=== PATIENT | female | born 2000 | race Caucasian/White ===

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

== ENCOUNTER 2021-02-02 20:16 | Emergency (ER) | payer OTHER ==
[2021-02-02 21:12] VITALS: RESP 18
--- NOTE | 2021-02-02 21:34 | XR ---
EXAMINATION TYPE: XR chest 2V DATE OF EXAM: 02/02/2021 COMPARISON: 07/24/2020 HISTORY: Chest pain TECHNIQUE: FINDINGS: Heart and mediastinum are normal. Lungs are clear. Diaphragm is normal. Bony thorax appears normal. IMPRESSION: Normal chest. No change.
--- NOTE | 2021-02-02 21:59 | ED ---
Chest Pain HPI - General Chief Complaint: Chest Pain Stated Complaint: chest pain, SOB Time Seen by Provider: 02/02/21 21:24 Source: patient, RN notes reviewed, old records reviewed Mode of arrival: ambulatory Limitations: no limitations - History of Present Illness Initial Comments: This is a 20-year-old female to emergency. Patient is no significant medical history no significant travel history or trauma. No fevers. He coming in for chest pain, no history of anxiety no current shortness of breath. Patient states chest pain woke her up from sleep, no prior medical history or similar history of chest pain. On arrival to ER chest pain is resolved MD Complaint: chest pain -: days(s) Onset: during rest Pain Location: substernal, left chest Pain Radiation: LUE Severity: moderate Quality: aching Consistency: intermittent Improves With: nothing Worsens With: nothing Context: recent illness Anginal Symptoms: nausea, dyspnea Other Symptoms: cough Treatments Prior to Arrival: none - Related Data Home Medications Medication Instructions Recorded Confirmed Acetaminophen-Codeine 300-30mg 1 tab PO Q6H PRN 02/06/21 02/06/21 [Tylenol w/codeine #3] Polyethylene Glycol 3350 [Miralax] 17 gm PO DAILY PRN 02/06/21 02/06/21 Previous Rx's Medication Instructions Recorded Sucralfate [Carafate] 1 gm PO ACHS #40 tablet 02/06/21 Allergies Allergy/AdvReac Type Severity Reaction Status Date / Time No Known Allergies Allergy Verified 02/06/21 17:50 Review of Systems ROS Statement: Those systems with pertinent positive or pertinent negative responses have been documented in the HPI. ROS Other: All systems not noted in ROS Statement are negative. Past Medical History Past Medical History: No Reported History Additional Past Medical History / Comment(s): seasonal allergies History of Any Multi-Drug Resistant Organisms: None Reported Past Surgical History: No Surgical Hx Reported Past Psychological History: No Psychological Hx Reported Smoking Status: Vaper Past Alcohol Use History: None Reported Past Drug Use History: Marijuana General Exam Limitations: no limitations General appearance: alert, in no apparent distress Head exam: Present: atraumatic, normocephalic, normal inspection Eye exam: Present: normal appearance, PERRL, EOMI. Absent: scleral icterus, conjunctival injection, periorbital swelling ENT exam: Present: normal exam, mucous membranes moist Neck exam: Present: normal inspection. Absent: tenderness, meningismus, lymphadenopathy Respiratory exam: Present: normal lung sounds bilaterally. Absent: respiratory distress, wheezes, rales, rhonchi, stridor Cardiovascular Exam: Present: regular rate, normal rhythm, normal heart sounds. Absent: systolic murmur, diastolic murmur, rubs, gallop, clicks GI/Abdominal exam: Present: soft, normal bowel sounds. Absent: distended, tenderness, guarding, rebound, rigid Extremities exam: Present: normal inspection, full ROM, normal capillary refill. Absent: tenderness, pedal edema, joint swelling, calf tenderness Back exam: Present: normal inspection Neurological exam: Present: alert, oriented X3, CN II-XII intact Psychiatric exam: Present: normal affect, normal mood Skin exam: Present: warm, dry, intact, normal color. Absent: rash Course Vital Signs 02/02/21 02/02/21 02/02/21 21:10 21:48 22:18 Temperature 98.2 F 97.3 F L Pulse Rate 69 50 L Pulse Rate [ 55 L Pediatric Clinical Dietician ] Respiratory 18 18 Rate Blood Pressure 145/87 116/83 O2 Sat by Pulse 99 98 Oximetry - Reevaluation(s) Reevaluation #1: 02/03/21 Record is reviewed Patient symptoms are improved here in the emergency department Patient informed of results and questions answered Patient is in no acute distress Chest Pain MDM - MDM 20-year-old female DF for evaluation of chest pain today. Patient's chest pain is atypical in nature. Patient's chest pain is reproducible. X-rays negative patient can be discharged home Disposition Clinical Impression: Atypical chest pain, Costochondritis Disposition: HOME SELF-CARE Condition: Good Instructions (If sedation given, give patient instructions): Costochondritis (ED) Is patient prescribed a controlled substance at d/c from ED?: No Referrals: Bryan Persaud Jr, [Primary Care Provider] - 1-2 days
[2021-02-02 22:19] VITALS: BP 116/83; PULSE 50; TEMP 97.3
== END 2021-02-02 22:18 | disposition home or self-care (01) ==
LOC: EC 20:16
DX: M94.0 Chondrocostal junction syndrome [Tietze] (principal); R11.0 Nausea; R05 Cough; R06.02 Shortness of breath; F17.290 Nicotine dependence, other tobacco product, uncomplicated
CPT/HCPCS: 71046; 93005; 99285

== ENCOUNTER 2021-02-05 17:42 | Emergency (ER) | payer OTHER ==
[2021-02-05 18:06] VITALS: TEMP 98.3
[2021-02-05 19:51] VITALS: RESP 20
[2021-02-05] MEDS ORDERED: NITROGLYCERIN SL TABS 0.4 MG TAB SUBLINGUAL STA (20:06)
[2021-02-05 20:30] VITALS: BP 112/58; PULSE 61
[2021-02-05] MEDS ORDERED: ACET/COD 300 MG/30 MG STARTER PACK 6 TAB BTL PO STA (20:50)
--- NOTE | 2021-02-05 20:51 | ED ---
General Adult HPI - General Source: patient Mode of arrival: ambulatory Limitations: no limitations <Mary Hernandez - Last Filed: 02/06/21 03:43> <Tonya Mcbride - Last Filed: 02/06/21 11:34> - General Chief complaint: Chest Pain Stated complaint: Chest pain Time Seen by Provider: 02/05/21 19:36 - History of Present Illness Initial comments: 20 year-old female patient presents to the emergency department for evaluation of chest pain. Patient states this has been going on over the last month. States she has been evaluated multiple times for this. States that the pain is in her mid upper to left chest. Denies radiation to her back. Denies any cough or congestion. States the pain started today after taking a benadryl. States that it has started in the past with eating. States she has been having increased heart burn and hiccups as well. She denies any leg swelling or calf pain. Denies recent travel. Denies use of control or concern for . Denies fever or chills. Denies any hematochezia or melena. Denies nausea or vomiting. Patient denies any recent rash, abdominal pain, diarrhea, constipation, back pain, numbness, tingling, dizziness, weakness, hematuria, dysuria, urinary urgency, urinary frequency, headache, visual changes, or any other complaints. (Mary Hernandez) - Related Data Home Medications Medication Instructions Recorded Confirmed No Known Home Medications 02/02/21 02/02/21 Allergies Allergy/AdvReac Type Severity Reaction Status Date / Time No Known Allergies Allergy Verified 02/02/21 22:02 Review of Systems ROS Other: All systems not noted in ROS Statement are negative. <Mary Hernandez - Last Filed: 02/06/21 03:43> ROS Other: All systems not noted in ROS Statement are negative. <Tonya Mcbride - Last Filed: 02/06/21 11:34> ROS Statement: Those systems with pertinent positive or pertinent negative responses have been documented in the HPI. Past Medical History Past Medical History: No Reported History Additional Past Medical History / Comment(s): seasonal allergies History of Any Multi-Drug Resistant Organisms: None Reported Past Surgical History: No Surgical Hx Reported Past Psychological History: No Psychological Hx Reported Smoking Status: Vaper Past Alcohol Use History: None Reported Past Drug Use History: Marijuana <Mary Hernandez - Last Filed: 02/06/21 03:43> General Exam Limitations: no limitations General appearance: alert, in no apparent distress, other (This is a well- developed, well-nourished adult female patient in no acute distress. Vital signs upon presentation are temperature 98.3F, pulse 73, respirations 18, blood pressure 106/63, pulse ox 97% on room air.) Eye exam: Present: normal appearance, PERRL, EOMI. Absent: scleral icterus, conjunctival injection, periorbital swelling ENT exam: Present: normal exam, normal oropharynx, mucous membranes moist Respiratory exam: Present: normal lung sounds bilaterally. Absent: respiratory distress, wheezes, rales, rhonchi, stridor Cardiovascular Exam: Present: regular rate, normal rhythm, normal heart sounds. Absent: systolic murmur, diastolic murmur, rubs, gallop, clicks GI/Abdominal exam: Present: soft, normal bowel sounds. Absent: distended, tenderness, guarding, rebound, rigid Neurological exam: Present: alert, oriented X3, CN II-XII intact Psychiatric exam: Present: normal affect, normal mood Skin exam: Present: warm, dry, intact, normal color. Absent: rash <DanaMukul schreiberina Sheri - Last Filed: 02/06/21 03:43> Course Vital Signs 02/05/21 02/05/21 02/05/21 18:02 19:50 20:28 Temperature 98.3 F Pulse Rate 73 53 L 61 Respiratory 18 20 20 Rate Blood Pressure 106/63 117/77 112/58 O2 Sat by Pulse 97 98 96 Oximetry Medical Decision Making <DanaabdoulMary - Last Filed: 02/06/21 03:43> <Tonya Mcbride - Last Filed: 02/06/21 11:34> - Medical Decision Making 20-year-old female patient percents to the emergency department today for evaluation of chest pain. Patient has been seen multiple times this year for similar symptoms over the last month or so. Physical examination is unremarkable. Abdomen soft and nontender. Given description of symptoms and history there is some concern for esophageal spasms I did give him one nitro. States that this did improve her symptoms somewhat. She'll be discharged to follow up with GI specialist for further evaluation as soon as possible. Return parameters were discussed in detail. She verbalizes understanding and agrees with this plan. Case discussed my attending Dr. Mcbride. (Mary Hernandez) I was available for consultation in the emergency department. The history and physical exam were done by the midlevel provider. I was consulted for this patients care. I reviewed the case with the midlevel provider and based on their presentation of the patient, I agree with the assessment, medical decision making and plan of care as documented. Chart was dictated using [employer] dictation software. Attempts were made to correct any dictation errors however some typographical errors may persist. (Tonya Mcbride) Disposition Is patient prescribed a controlled substance at d/c from ED?: No Time of Disposition: 20:51 <Mary Hernandez - Last Filed: 02/06/21 03:43> <Tonya Mcbride - Last Filed: 02/06/21 11:34> Clinical Impression: Chest pain, Esophageal spasm Disposition: HOME SELF-CARE Condition: Good Instructions (If sedation given, give patient instructions): Chest Pain (ED), Esophageal Spasm (ED) Additional Instructions: Follow-up with GI specialist for further evaluation as soon as possible. Return to the emergency department for any new, worsening, or concerning symptoms. Referrals: Bryan Persaud Jr, DO [Primary Care Provider] - 1-2 days Amy Lowery MD [STAFF PHYSICIAN] - 1-2 days
== END 2021-02-05 21:28 | disposition home or self-care (01) ==
LOC: EC 17:42
DX: K22.4 Dyskinesia of esophagus (principal); F17.290 Nicotine dependence, other tobacco product, uncomplicated
CPT/HCPCS: 99284

== ENCOUNTER 2021-02-06 17:25 | Emergency (ER) | payer OTHER ==
[2021-02-06 17:29] VITALS: BP 101/69; PULSE 59; RESP 16; TEMP 98
--- NOTE | 2021-02-06 18:18 | ED ---
Abdominal Pain HPI - General Chief Complaint: Abdominal Pain Stated Complaint: Chest pain, unable to eat Time Seen by Provider: 02/06/21 18:16 Source: patient Mode of arrival: ambulatory Limitations: no limitations - History of Present Illness Initial Comments: Mary is a 20-year-old female who presents the ER again for the third time this week for reevaluation of epigastric abdominal discomfort. Patient has undergone workup twice for chest pain which she believed to be related to eating. Patient states her discomfort now is epigastric, she feels like she can't eat, eating makes the pain worse. Patient states she suffered from chronic constipation usually only has one bowel movement per week but has not had a bowel movement in over a week at this point. She states that she took a laxative yesterday and saw has not had a bowel movement. She has no significant abdominal pain to slight cramping but is concerned about this. She is scheduled to be seen by Dr. Sharma next week. She is scheduled to be seen by GI in April. - Related Data Home Medications Medication Instructions Recorded Confirmed Acetaminophen-Codeine 300-30mg 1 tab PO Q6H PRN 02/06/21 02/06/21 [Tylenol w/codeine #3] Polyethylene Glycol 3350 [Miralax] 17 gm PO DAILY PRN 02/06/21 02/06/21 Previous Rx's Medication Instructions Recorded Sucralfate [Carafate] 1 gm PO ACHS #40 tablet 02/06/21 Allergies Allergy/AdvReac Type Severity Reaction Status Date / Time No Known Allergies Allergy Verified 02/06/21 17:50 Review of Systems ROS Statement: Those systems with pertinent positive or pertinent negative responses have been documented in the HPI. ROS Other: All systems not noted in ROS Statement are negative. Past Medical History Past Medical History: No Reported History Additional Past Medical History / Comment(s): seasonal allergies History of Any Multi-Drug Resistant Organisms: None Reported Past Surgical History: No Surgical Hx Reported Past Psychological History: No Psychological Hx Reported Smoking Status: Vaper Past Alcohol Use History: None Reported Past Drug Use History: Marijuana General Exam - General Exam Comments Initial Comments: Physical Exam GENERAL: Patient is well-developed and well-nourished. Patient is nontoxic and well-hydrated and is in no distress. strong odor of marijuana HENT: Normocephalic, Atraumatic. EYES: PERRL, EOMI PULMONARY: Unlabored respirations. CARDIOVASCULAR: Warm and well perfused extremities ABDOMEN: Soft,Non-distended, non-peritoneal SKIN: No rashes or bruising : Deferred NEUROLOGIC: Alert and oriented Normal speech Normal gait MUSCULOSKELETAL: Moving all extremities with no apparent injury PSYCHIATRIC: No SI/HI Limitations: no limitations Course Vital Signs 02/06/21 17:26 Temperature 98.0 F Pulse Rate 59 L Respiratory 16 Rate Blood Pressure 101/69 O2 Sat by Pulse 97 Oximetry Medical Decision Making - Medical Decision Making the patient was seen and evaluated, patient crying stating that she is scared of needles, does not want blood work Not having chest pain like earlier in the week At this time patient has undergone a very thorough workup twice this week, I did offer to ultrasound the gallbladder however her pain is not postprandial, not worsened by eating but constant. She has no right upper quadrant abdominal tenderness she's had normal labs throughout the week. At this time patient like to decline of the ultrasound. Patient will be treated with concern suppository for her constipation and prescribed Carafate for suspected gastritis Disposition Clinical Impression: Epigastric pain Disposition: HOME SELF-CARE Condition: Stable Additional Instructions: Follow up with Dr Urrutia on as scheduled Prescriptions: Sucralfate [Carafate] 1 gm PO ACHS #40 tablet Is patient prescribed a controlled substance at d/c from ED?: No Referrals: Bryan Persaud Jr, DO [Primary Care Provider] - 1-2 days
[2021-02-06] MEDS ORDERED: GLYCERIN ADULT SUPPOSITORY 1 EACH RECTAL STA (18:43)
== END 2021-02-06 19:03 | disposition home or self-care (01) ==
LOC: EC 17:25
DX: R10.13 Epigastric pain (principal); F17.290 Nicotine dependence, other tobacco product, uncomplicated
CPT/HCPCS: 99283

== ENCOUNTER 2021-02-06 21:55 | Emergency (ER) | payer OTHER ==
[2021-02-06 22:16] VITALS: BP 99/57; PULSE 55; RESP 16
--- NOTE | 2021-02-06 22:40 | ED ---
General Adult HPI - General Chief complaint: Chest Pain Stated complaint: Revisit Chest Pain Time Seen by Provider: 02/06/21 22:17 Source: patient Mode of arrival: ambulatory Limitations: no limitations - History of Present Illness Initial comments: 20 year-old female patient presented for the second visit today for evaluation of chest pain. Patient states that she was on her way home from the store when she had intense pain in her chest and upper abdomen. Patient was seen here earlier for this. States when she got here she went to the bathroom and expelled a lot of gas. States that her symptoms are now resolved. She reports being seen many times for these symptoms over the last month. Does have some follow up appointments coming up with GI and general surgery. She denies any fever, chills, or shortness of breath. Denies nausea or vomiting. - Related Data Home Medications Medication Instructions Recorded Confirmed Acetaminophen-Codeine 300-30mg 1 tab PO Q6H PRN 02/06/21 02/06/21 [Tylenol w/codeine #3] Polyethylene Glycol 3350 [Miralax] 17 gm PO DAILY PRN 02/06/21 02/06/21 Previous Rx's Medication Instructions Recorded Sucralfate [Carafate] 1 gm PO ACHS #40 tablet 02/06/21 Allergies Allergy/AdvReac Type Severity Reaction Status Date / Time No Known Allergies Allergy Verified 02/06/21 17:50 Review of Systems ROS Statement: Those systems with pertinent positive or pertinent negative responses have been documented in the HPI. ROS Other: All systems not noted in ROS Statement are negative. Past Medical History Past Medical History: No Reported History Additional Past Medical History / Comment(s): seasonal allergies History of Any Multi-Drug Resistant Organisms: None Reported Past Surgical History: No Surgical Hx Reported Past Psychological History: No Psychological Hx Reported Smoking Status: Vaper Past Alcohol Use History: None Reported Past Drug Use History: Marijuana General Exam Limitations: no limitations General appearance: alert, in no apparent distress, other (This is a well- developed, well-nourished adult female patient in no acute distress. Vital signs upon presentation are pulse 55, respirations 16, blood pressure 99/57, pulse ox 98% on room air.) ENT exam: Present: normal exam, normal oropharynx, mucous membranes moist Respiratory exam: Present: normal lung sounds bilaterally. Absent: respiratory distress, wheezes, rales, rhonchi, stridor Cardiovascular Exam: Present: regular rate, normal rhythm, normal heart sounds. Absent: systolic murmur, diastolic murmur, rubs, gallop, clicks GI/Abdominal exam: Present: soft, normal bowel sounds. Absent: distended, tenderness, guarding, rebound, rigid Neurological exam: Present: alert, oriented X3, CN II-XII intact Psychiatric exam: Present: normal affect, normal mood Skin exam: Present: warm, dry, intact, normal color. Absent: rash Course Vital Signs 02/06/21 22:14 Pulse Rate 55 L Respiratory 16 Rate Blood Pressure 99/57 O2 Sat by Pulse 98 Oximetry Medical Decision Making - Medical Decision Making 20-year-old female patient presented to the emergency department for evaluation of chest pain and abdominal pain started on the drive from the pharmacy just prior to arrival. Upon arrival she went to the bathroom states she expelled a lot of gas and is now feeling better. She denies further need for testing or evaluation would like to be discharged home. She is instructed to follow-up with her primary care physician and specialist that she has planned. Return parameters were discussed in detail. She verbalizes understanding and agrees with this plan. My attending is Dr. Reyes. Disposition Clinical Impression: Chest pain, Abdominal pain Disposition: HOME SELF-CARE Condition: Good Instructions (If sedation given, give patient instructions): Chest Pain (ED), Abdominal Pain (ED) Is patient prescribed a controlled substance at d/c from ED?: No Referrals: Bryan Persaud Jr, [Primary Care Provider] - 1-2 days Time of Disposition: 22:40
== END 2021-02-06 22:44 | disposition home or self-care (01) ==
LOC: EC 21:55
DX: R07.9 Chest pain, unspecified (principal); R10.9 Unspecified abdominal pain; F17.290 Nicotine dependence, other tobacco product, uncomplicated
CPT/HCPCS: 99284

== ENCOUNTER 2021-06-20 18:59 | Emergency (ER) | payer OTHER ==
[2021-06-20 19:05] VITALS: BP 125/65; PULSE 55; RESP 20; TEMP 98.4
--- NOTE | 2021-06-20 20:24 | ED ---
Eye Problem HPI - General Chief complaint: Eye Problems Stated complaint: Rt Eye Pain Time Seen by Provider: 06/20/21 20:18 Source: patient, RN notes reviewed Mode of arrival: ambulatory Limitations: no limitations - History of Present Illness Initial comments: Patient is a 21-year-old female that presents to the emergency room complaining of right eye irritation. She notes she had eyelash in it 1-2 days ago I last saw but still feels like her eyes irritation and scratching. Patient notes she started [id number] eyedrops and was using her 6 times a day with no relief. She can emergency room to see if she could do. Vision denied any change in vision blurry vision chest pain first breath headache nausea vomiting diarrhea constipation fever fatigue chills. - Related Data Home Medications Medication Instructions Recorded Confirmed Acetaminophen-Codeine 300-30mg 1 tab PO Q6H PRN 02/06/21 02/06/21 [Tylenol w/codeine #3] Polyethylene Glycol 3350 [Miralax] 17 gm PO DAILY PRN 02/06/21 02/06/21 Previous Rx's Medication Instructions Recorded Sucralfate [Carafate] 1 gm PO ACHS #40 tablet 02/06/21 Allergies Allergy/AdvReac Type Severity Reaction Status Date / Time No Known Allergies Allergy Verified 06/20/21 19:05 Review of Systems ROS Statement: Those systems with pertinent positive or pertinent negative responses have been documented in the HPI. ROS Other: All systems not noted in ROS Statement are negative. Past Medical History Past Medical History: No Reported History Additional Past Medical History / Comment(s): seasonal allergies History of Any Multi-Drug Resistant Organisms: None Reported Past Surgical History: No Surgical Hx Reported Past Psychological History: No Psychological Hx Reported Smoking Status: Current every day smoker, Vaper Past Alcohol Use History: None Reported Past Drug Use History: Marijuana General Exam Limitations: no limitations General appearance: alert, in no apparent distress Head exam: Present: atraumatic, normocephalic, normal inspection Eye exam: Present: normal appearance, PERRL, EOMI, other (No obvious abrasions or physical exam.). Absent: scleral icterus, conjunctival injection, periorbital swelling Expanded Eyelids: Normal Inspection: Bilateral Pupils: Regular, Round: Bilateral, Reactive: Bilateral Sclera/Conjunctival: Normal Inspection: Bilateral ENT exam: Present: normal exam, mucous membranes moist Respiratory exam: Present: normal lung sounds bilaterally. Absent: respiratory distress, wheezes, rales, rhonchi, stridor Cardiovascular Exam: Present: regular rate, normal rhythm, normal heart sounds. Absent: systolic murmur, diastolic murmur, rubs, gallop, clicks Extremities exam: Present: normal inspection, full ROM, normal capillary refill. Absent: tenderness, pedal edema, joint swelling, calf tenderness Neurological exam: Present: alert, oriented X3 Psychiatric exam: Present: normal affect, normal mood Skin exam: Present: warm, dry, intact, normal color. Absent: rash Course Vital Signs 06/20/21 19:02 Temperature 98.4 F Pulse Rate 55 L Respiratory 20 Rate Blood Pressure 125/65 O2 Sat by Pulse 98 Oximetry Medical Decision Making - Medical Decision Making 21-year-old female with right eye irritation. Upon physical exam there is no obvious abrasions or irritation noted. Patient was informed she might have a small corneal abrasion causing irritation and scratchiness. Patient was a full she can use [id number] artificial tears to keep her eye moist. Patient is given discharge home with follow-up primary care as needed. Case discussed with Dr. Acosta. Disposition Clinical Impression: Corneal abrasion Disposition: HOME SELF-CARE Condition: Stable Instructions (If sedation given, give patient instructions): Eye Foreign Body ( ED) Additional Instructions: Please return to the Emergency Department if symptoms worsen or any other concerns. Follow-up with primary care 1-2 days. Can use artificial tears as needed throughout the day to keep eye wet. Is patient prescribed a controlled substance at d/c from ED?: No Referrals: Bryan Persaud Jr, DO [Primary Care Provider] - 1-2 days Time of Disposition: 20:24
== END 2021-06-20 20:34 | disposition home or self-care (01) ==
LOC: EC 18:59
DX: S05.01XA Injury of conjunctiva and corneal abrasion without foreign body, right eye, initial encounter (principal); F17.290 Nicotine dependence, other tobacco product, uncomplicated; X58.XXXA Exposure to other specified factors, initial encounter
CPT/HCPCS: 99283

== ENCOUNTER 2021-12-26 10:15 | Emergency (ER) | payer OTHER ==
[2021-12-26 10:25] VITALS: BP 115/70; PULSE 72; RESP 18; TEMP 98.1
--- NOTE | 2021-12-26 10:32 | ED ---
General Adult HPI - General Chief complaint: ENT Stated complaint: Candy stuck in throat Time Seen by Provider: 12/26/21 10:25 Source: patient, RN notes reviewed, old records reviewed Mode of arrival: ambulatory Limitations: no limitations - History of Present Illness Initial comments: This is a 21-year-old female presents emergency department stating yesterday she actually swallowed a hard candy and since then she's had this sensation in the left side of her throat occasionally might still be stuck there. Patient is able to drink without any problems she has no difficulty breathing. Patient states it was definitively a piece of candy that she swallowed there was no chance that was anything else like a bone. Patient denies any other symptoms at this time. - Related Data Home Medications Medication Instructions Recorded Confirmed Acetaminophen-Codeine 300-30mg 1 tab PO Q6H PRN 02/06/21 02/06/21 [Tylenol w/codeine #3] polyethylene glycoL 3350 [Miralax] 17 gm PO DAILY PRN 02/06/21 02/06/21 Previous Rx's Medication Instructions Recorded Sucralfate [Carafate] 1 gm PO ACHS #40 tablet 02/06/21 Allergies Allergy/AdvReac Type Severity Reaction Status Date / Time No Known Allergies Allergy Verified 12/26/21 10:25 Review of Systems ROS Statement: Those systems with pertinent positive or pertinent negative responses have been documented in the HPI. ROS Other: All systems not noted in ROS Statement are negative. Past Medical History Past Medical History: No Reported History Additional Past Medical History / Comment(s): seasonal allergies History of Any Multi-Drug Resistant Organisms: None Reported Past Surgical History: No Surgical Hx Reported Past Psychological History: No Psychological Hx Reported Smoking Status: Vaper Past Alcohol Use History: None Reported Past Drug Use History: Marijuana General Exam - General Exam Comments Initial Comments: GENERAL: Patient is well-developed and well-nourished. Patient is nontoxic and well- hydrated and is in no acute distress. ENT: Neck is soft and supple. No significant lymphadenopathy is noted. Oropharynx is clear. Moist mucous membranes. EYES: The sclera were anicteric and conjunctiva were pink and moist. Extraocular movements were intact and pupils were equal round and reactive to light. Eyelids were unremarkable. SKIN: Skin is clear with no lesions or rashes and otherwise unremarkable. NEUROLOGIC: Patient is alert and oriented x3. Cranial nerves II through XII are grossly intact. MUSCULOSKELETAL: Normal extremities with adequate strength and full range of motion. LYMPHATICS: No significant lymphadenopathy is noted PSYCHIATRIC: Normal psychiatric evaluation. Limitations: no limitations Course Vital Signs 12/26/21 10:21 Temperature 98.1 F Pulse Rate 72 Respiratory 18 Rate Blood Pressure 115/70 O2 Sat by Pulse 98 Oximetry Disposition Clinical Impression: Globus hystericus Disposition: HOME SELF-CARE Condition: Good Instructions (If sedation given, give patient instructions): Esophageal Foreign Body (ED) Is patient prescribed a controlled substance at d/c from ED?: No Referrals: Bryan Persaud Jr, [Primary Care Provider] - 1-2 days Time of Disposition: 10:32
== END 2021-12-26 10:40 | disposition home or self-care (01) ==
LOC: EC 10:15
DX: F45.8 Other somatoform disorders (principal); F17.290 Nicotine dependence, other tobacco product, uncomplicated; F12.90 Cannabis use, unspecified, uncomplicated
CPT/HCPCS: 99283

== ENCOUNTER 2021-12-26 13:29 | Emergency (ER) | payer OTHER ==
[2021-12-26 13:38] VITALS: TEMP 98.1
--- NOTE | 2021-12-26 13:52 | XR ---
EXAMINATION TYPE: XR soft tissue neck DATE OF EXAM: 12/26/2021 COMPARISON: NONE HISTORY: possible FB TECHNIQUE: 2 views of the soft tissues of the neck are submitted. FINDINGS: The airway is patent. Normal appearing epiglottis. Retropharyngeal soft tissues are withi n normal limits. No evidence for radiopaque foreign body. No radiopaque foreign body seen. IMPRESSION: Negative study
[2021-12-26] MEDS ORDERED: GLUCAGON 1 MG/ML VIAL IM STA ×2 (14:19→15:24)
--- NOTE | 2021-12-26 14:38 | ED ---
General Adult HPI - General Chief complaint: ENT Stated complaint: object stuck in throat/SOB/revist Time Seen by Provider: 12/26/21 14:00 Source: patient Mode of arrival: ambulatory Limitations: no limitations - History of Present Illness Initial comments: Patient is a 21-year-old female presenting with chief complaint of "I feel like something is stuck in my throat". Patient states that she was eating hard candy yesterday when the sensation began. It is accompanied by occasional sharp pain, pain with swallowing, and difficulty swallowing solid items. She denies any shortness of breath or chest pain. Patient was here earlier for the same complaint, she states that she tried hot tea, carbonated beverages, a milkshake, and she states that all of these did not alleviate her symptoms. She denies fever, chills, nausea, vomiting, headache, vision or hearing changes. - Related Data Home Medications Medication Instructions Recorded Confirmed Acetaminophen-Codeine 300-30mg 1 tab PO Q6H PRN 02/06/21 02/06/21 [Tylenol w/codeine #3] polyethylene glycoL 3350 [Miralax] 17 gm PO DAILY PRN 02/06/21 02/06/21 Previous Rx's Medication Instructions Recorded Sucralfate [Carafate] 1 gm PO ACHS #40 tablet 02/06/21 Allergies Allergy/AdvReac Type Severity Reaction Status Date / Time No Known Allergies Allergy Verified 12/26/21 13:38 Review of Systems ROS Statement: Those systems with pertinent positive or pertinent negative responses have been documented in the HPI. ROS Other: All systems not noted in ROS Statement are negative. Past Medical History Past Medical History: No Reported History Additional Past Medical History / Comment(s): seasonal allergies History of Any Multi-Drug Resistant Organisms: None Reported Past Surgical History: No Surgical Hx Reported Past Psychological History: No Psychological Hx Reported Smoking Status: Vaper Past Alcohol Use History: None Reported Past Drug Use History: Marijuana General Exam Limitations: no limitations General appearance: alert, in no apparent distress Head exam: Present: atraumatic, normocephalic, normal inspection Eye exam: Present: normal appearance, EOMI. Absent: scleral icterus, periorbital swelling ENT exam: Present: normal exam, normal oropharynx, mucous membranes moist Neck exam: Present: normal inspection Respiratory exam: Present: normal lung sounds bilaterally. Absent: respiratory distress, wheezes, rales, rhonchi, stridor Cardiovascular Exam: Present: regular rate, normal rhythm, normal heart sounds. Absent: systolic murmur, diastolic murmur, rubs, gallop, clicks Neurological exam: Present: alert, oriented X3, CN II-XII intact Psychiatric exam: Present: normal affect, normal mood Skin exam: Present: warm, dry, intact, normal color. Absent: rash Course Vital Signs 12/26/21 12/26/21 13:37 15:44 Temperature 98.1 F Pulse Rate 89 80 Respiratory 16 18 Rate Blood Pressure 125/85 122/70 O2 Sat by Pulse 99 98 Oximetry Medical Decision Making - Medical Decision Making Patient is a 21-year-old female presenting with chief complaint of difficulty swallowing. Patient states that yesterday she accidentally small the hard candy whole, since then she has had foreign body sensation and pain and difficulty with swallowing. She was here earlier today with the same complaint, she was instructed on supportive treatment and discharge. Patient states that th roughout the day symptoms got worse, she is unable to swallow anything other than water. No shortness of breath or difficulty breathing. On examination posterior pharynx is clear, no midline shift. Soft tissue x-ray of the neck shows no foreign body and normal-appearing epiglottis. Retro-pharyngeal soft tissue is WNL. Patient was given glucagon, valium, and nitro. Patient states she could not swallow the cracker and by mouth challenge and had difficulty swallowing water. She requires GI services, we have no GI coverage at this time. [facility]'ll be [facility] to [facility] for [facility] services, I spoke with Dr. Felicitas Peterson who agreed to accept the patient. Patient is agreeable with this plan, at this time she is refusing EMS services and requested be transferred by private car. At this time she is having no shortness of breath or difficulty breathing, she is stable for transfer. I discussed this case with my attending Dr. Shelley. Disposition Clinical Impression: Sensation of foreign body in esophagus Disposition: OTHER INSTITUTION NOT DEFINED Condition: Fair Referrals: Bryan Persaud Jr, DO [Primary Care Provider] - 1-2 days Time of Disposition: 16:59 - Out of Hospital Transfer - Req. Specs Out of Hospital Transfer - Requested Specifics: Other Emergency Center ([facility])
[2021-12-26] MEDS ORDERED: NITROGLYCERIN SL TABS 0.4 MG TAB SUBLINGUAL STA (15:24)
[2021-12-26] MEDS ORDERED: diazePAM 5 MG/ML 1 ML VIAL IM STA (15:24)
[2021-12-26 15:46] VITALS: BP 122/70; PULSE 80; RESP 18
[2021-12-26] MEDS ORDERED: hydrOXYzine HCL 50 MG/ML 1 ML VIAL IM STA (16:49)
== END 2021-12-26 17:51 | disposition other institution (70) ==
LOC: EC 13:29
DX: T18.108A Unspecified foreign body in esophagus causing other injury, initial encounter (principal); F17.209 Nicotine dependence, unspecified, with unspecified nicotine-induced disorders
CPT/HCPCS: 70360; 99284; 96372; J1610; J3360

== ENCOUNTER 2022-06-10 03:35 | Emergency (ER) | payer OTHER ==
[2022-06-10 03:39] VITALS: BP 113/67; PULSE 64; RESP 16; TEMP 98.2
[2022-06-10] MEDS ORDERED: KETOROLAC 15 MG/ML 1 ML VIAL IM STA (04:21)
--- NOTE | 2022-06-10 04:22 | ED ---
General Adult HPI - General Chief complaint: Dental/Oral Stated complaint: Dental Pain Time Seen by Provider: 06/10/22 03:53 Source: patient Mode of arrival: ambulatory Limitations: no limitations - History of Present Illness Initial comments: This is a 32-year-old female with a past medical history including a reported previous episode of choking and now a fear of having any solid foods she now only drinks liquids, presents emergency department for dental pain. The patient stated that she is a pain in the left upper teeth with multiple issues including "moving molars". The patient stated that she has an appointment on Tuesday with her dentist but stated that she continued pain so she needed be evaluated because she could not take anymore. The patient continued to remain stable without any further acute pain or complaints and denied any swelling or abscess. The patient denied any fevers and chills. - Related Data Home Medications Medication Instructions Recorded Confirmed Acetaminophen-Codeine 300-30mg 1 tab PO Q6H PRN 02/06/21 02/06/21 [Tylenol w/codeine #3] polyethylene glycoL 3350 [Miralax] 17 gm PO DAILY PRN 02/06/21 02/06/21 Previous Rx's Medication Instructions Recorded Sucralfate [Carafate] 1 gm PO ACHS #40 tablet 02/06/21 Allergies Allergy/AdvReac Type Severity Reaction Status Date / Time No Known Allergies Allergy Verified 06/10/22 03:37 Review of Systems ROS Statement: Those systems with pertinent positive or pertinent negative responses have been documented in the HPI. ROS Other: All systems not noted in ROS Statement are negative. Past Medical History Past Medical History: No Reported History Additional Past Medical History / Comment(s): seasonal allergies History of Any Multi-Drug Resistant Organisms: None Reported Past Surgical History: No Surgical Hx Reported Past Psychological History: No Psychological Hx Reported Smoking Status: Vaper Past Alcohol Use History: None Reported Past Drug Use History: Marijuana General Exam Limitations: no limitations General appearance: alert, in no apparent distress Head exam: Present: atraumatic, normocephalic Eye exam: Present: normal appearance, PERRL Pupils: Present: normal accommodation ENT exam: Present: normal exam, normal oropharynx, mucous membranes moist Neck exam: Present: normal inspection, full ROM Respiratory exam: Present: normal lung sounds bilaterally Cardiovascular Exam: Present: regular rate, normal rhythm, normal heart sounds GI/Abdominal exam: Present: soft, normal bowel sounds Extremities exam: Present: normal inspection, full ROM Back exam: Present: normal inspection, full ROM Neurological exam: Present: alert, oriented X3, CN II-XII intact Psychiatric exam: Present: normal affect, normal mood Skin exam: Present: warm, dry Course Vital Signs 06/10/22 03:37 Temperature 98.2 F Pulse Rate 64 Respiratory 16 Rate Blood Pressure 113/67 O2 Sat by Pulse 100 Oximetry Medical Decision Making - Medical Decision Making Was pt. sent in by a medical professional or institution? @ -No Did you speak to anyone other than the patient for history? @ -No Did you review nursing and triage notes? @ -Nursing triage notes were reviewed Were old charts reviewed? @ -None Differential Diagnosis? @ -Dental abscess, dental pain EKG interpreted by me (3pts min.)? @ -[none] X-rays interpreted by me (1pt min.)? @ -[none] CT interpreted by me (1pt min.)? @ -[none] U/S interpreted by me (1pt. min.)? @ -[none] What testing was considered but not performed? (CT, X-rays, U/S, labs)? Why? @None What meds were considered but not given? Why? @ -[none] Did you discuss the management of the patient with other professionals? @ -No Did you reconcile home meds? @ -[none] Was smoking cessation discussed for >3mins.? @ -[none] Was critical care preformed (if so, how long)? @ -[none] Were there social determinants of health that impacted care today? How? (Homelessness, low income, unemployed, alcoholism, drug addiction, transportation, low edu. Level, literacy, decrease access to med. care, [facility], rehab)? @ -No Was there de-escalation of care discussed even if they declined? (Discuss DNR or withdrawal of care, Hospice)? @ -No What co-morbidities impacted this encounter? (DM, HTN, Smoking, COPD, CAD, Cancer, CVA, Hep., AIDS, mental health diagnosis, sleep apnea, morbid obesity)? @ -None Was patient admitted / discharged? @ -The patient was seen and evaluated emergency department. Physical exam, the patient was resting in bed without any acute distress. The patient was up, using a mouthwash on the emergency Department as she stated this is the only had helps her pain. The patient stated that she cannot swallow pills because she had an issue with choking so she can't swallow a pill or she "freaks out." The patient remained stable and was given a dose of Toradol. The patient was advised to take Motrin [id number] however had to take Children's Motrin because she could not take any pills. The patient was advised to follow-up with her dentist for further workup and evaluation as there is no further intervention or treatment needed in the emergency Department as there is no abscess noted. The patient continued to remain stable and understood all these instructions. The patient was discharged home in stable condition. Undiagnosed new problem with uncertain prognosis? @ -[none] Drug Therapy requiring intensive monitoring for toxicity (Heparin, Nitro, Insulin, Cardizem)? @ -[none] Were any procedures done? @ -[none] Diagnosis/symptom? @ -Dental pain Acute, or Chronic, or Acute on Chronic? @ -Acute Uncomplicated (without systemic symptoms) or Complicated (systemic symptoms)? @ -Uncomplicated Side effects of treatment? @ -[none] Exacerbation, Progression, or Severe Exacerbation] @ -[no] Poses a threat to life or bodily function? @ -[no] Disposition Clinical Impression: Pain, dental Disposition: HOME SELF-CARE Condition: Stable Instructions (If sedation given, give patient instructions): Toothache (ED) Is patient prescribed a controlled substance at d/c from ED?: No Referrals: Bryan Persaud Jr, DO [Primary Care Provider] - 1-2 days Time of Disposition: 04:20
== END 2022-06-10 04:34 | disposition home or self-care (01) ==
LOC: EC 03:35
DX: K08.89 Other specified disorders of teeth and supporting structures (principal); F17.290 Nicotine dependence, other tobacco product, uncomplicated; F12.90 Cannabis use, unspecified, uncomplicated
CPT/HCPCS: 99282; 96372; J1885

== ENCOUNTER 2022-06-10 19:31 | Emergency (ER) | payer OTHER ==
[2022-06-10 19:51] VITALS: BP 132/79; PULSE 96; RESP 16; TEMP 98
[2022-06-10] MEDS ORDERED: LIDOCAINE VISCOUS 2% 15 ML CUP MUCOUS MEM ONE (20:52)
--- NOTE | 2022-06-10 20:55 | ED ---
ENT HPI - General Chief complaint: Dental/Oral Stated complaint: Dental issue Time Seen by Provider: 06/10/22 20:44 Source: patient, RN notes reviewed Mode of arrival: ambulatory Limitations: no limitations - History of Present Illness Initial comments: Aphthous ulcer Pleasant 22-year-old female presents to emergency department complaining of left upper dental pain. Patient has a dentist appointment tomorrow to have her tooth pulled. He says arty on amoxicillin. Patient has been using mouthwash much more than directed. Since then she has developed aphthous ulcers to the mucous membranes of her mouth. Patient leaves this may be related to overusing the mouthwash. Patient denies any fever. Denies any problems with swallowing. He is complaining of some burning discomfort to the areas of the aphthous ulcers. No headache, no fever or chills, no changes in vision or hearing, no sore throat or difficulty with speech, no neck pain, no chest pain or shortness of breath, no abdominal pain, no nausea or vomiting, no changes in urination or bowel movements, no numbness or tingling, no extremity pain, no skin rashes or lesions. Past medical, surgical, social, and family history reviewed. - Related Data Home Medications Medication Instructions Recorded Confirmed Acetaminophen-Codeine 300-30mg 1 tab PO Q6H PRN 02/06/21 02/06/21 [Tylenol w/codeine #3] polyethylene glycoL 3350 [Miralax] 17 gm PO DAILY PRN 02/06/21 02/06/21 Previous Rx's Medication Instructions Recorded Sucralfate [Carafate] 1 gm PO ACHS #40 tablet 02/06/21 Allergies Allergy/AdvReac Type Severity Reaction Status Date / Time No Known Allergies Allergy Verified 06/10/22 03:37 Review of Systems ROS Statement: Those systems with pertinent positive or pertinent negative responses have been documented in the HPI. ROS Other: All systems not noted in ROS Statement are negative. Past Medical History Past Medical History: No Reported History Additional Past Medical History / Comment(s): seasonal allergies History of Any Multi-Drug Resistant Organisms: None Reported Past Surgical History: No Surgical Hx Reported Past Psychological History: No Psychological Hx Reported Smoking Status: Vaper Past Alcohol Use History: None Reported Past Drug Use History: Marijuana General Exam - General Exam Comments Initial Comments: Vital signs stable, patient afebrile. Patient does not appear to be ill or toxic. Limitations: no limitations General appearance: alert, in no apparent distress Head exam: Present: atraumatic, normocephalic, normal inspection Eye exam: Present: normal appearance, EOMI ENT exam: Present: mucous membranes moist, other (Patient has multiple aphthous ulcers noted, more so to the left mucous membranes.). Absent: normal exam (Mild erythema adjacent to tooth #19. No evidence of abscess), normal oropharynx, mucous membranes dry, TM's normal bilaterally, normal external ear exam Neck exam: Present: normal inspection. Absent: tenderness, meningismus, lymphadenopathy Respiratory exam: Present: normal lung sounds bilaterally. Absent: respiratory distress, wheezes, rales, rhonchi, stridor Cardiovascular Exam: Present: regular rate, normal rhythm, normal heart sounds. Absent: systolic murmur, diastolic murmur, rubs, gallop, clicks GI/Abdominal exam: Present: soft. Absent: tenderness Extremities exam: Present: normal inspection, full ROM Neurological exam: Present: alert, oriented X3, CN II-XII intact Course Vital Signs 06/10/22 19:48 Temperature 98 F Pulse Rate 96 Respiratory 16 Rate Blood Pressure 132/79 O2 Sat by Pulse 99 Oximetry Medical Decision Making - Medical Decision Making Was pt. sent in by a medical professional or institution? @ -no Did you speak to anyone other than the patient for history? @ -no Did you review nursing and triage notes? @ -agree Were old charts reviewed? @ -no Differential Diagnosis? @ -Herpetic infection, aphthous ulcer, dental infection, streptococcal pharyngitis, oral candidiasis, this is not an inclusive list What meds were considered but not given? Why? @ -I did consider narcotic pain medications. However after discussion with the patient, patient is requesting something topical. After shared decision-making we did decide on topical viscous Xylocaine Did you discuss the management of the patient with other professionals? @ -ED attending physician Was patient admitted / discharged? @ -Patient was discharged with suspected aphthous ulcers. Topical treatment ordered. Patient has a dental appointment tomorrow. Return for all parameters discussed in detail. Patient voices understanding of the treatment plan. Acute, or Chronic, or Acute on Chronic? @ -acute Uncomplicated (without systemic symptoms) or Complicated (systemic symptoms)? @ -Uncomplicated Exacerbation, Progression, or Severe Exacerbation] @ -[no] Poses a threat to life or bodily function? @ -[no] Patient was told to return to the ER for any signs or symptoms worsen. Told to return immediately if any other problems arise. All questions answered. Treatment plan discussed. Patient in agreement Every effort has been made to ensure accuracy of this dictation. However, due to the limitations of electronic medical records and dictation devices, errors in charting still occur. Supervising physician Dr. Shelley Disposition Clinical Impression: Aphthous ulcer of mouth Narrative: Use 1-2 teaspoons of the viscous lidocaine every 2 hours for oral pain. Procedure the dentist appointment tomorrow as planned. Follow-up with your regular physician as directed. Return to the ER immediately if any symptoms worsen, new symptoms arise, or any other problems develop. You can also use [id number] ibuprofen and/or acetaminophen for additional pain control. Disposition: HOME SELF-CARE Condition: Good Instructions (If sedation given, give patient instructions): Courtney Weaver (ED) Is patient prescribed a controlled substance at d/c from ED?: No Referrals: Bryan Persaud Jr, [Primary Care Provider] - 1-2 days
== END 2022-06-10 21:08 | disposition home or self-care (01) ==
LOC: EC 19:31
DX: K12.0 Recurrent oral aphthae (principal); F12.90 Cannabis use, unspecified, uncomplicated; F17.290 Nicotine dependence, other tobacco product, uncomplicated
CPT/HCPCS: 99282

== ENCOUNTER 2022-09-10 18:40 | Emergency (ER) | payer OTHER ==
[2022-09-10 18:56] VITALS: BP 111/67; PULSE 78; RESP 16; TEMP 98
[2022-09-10 19:19] LABS: Appearance,Urine Cloudy (Clear); Bacteria,Urine Rare /hpf; Bilirubin,Urine Negative (Negative); Blood,Urine Moderate (Negative); Color,Urine Yellow; Glucose,Urine (UA) Negative (Negative); Ketones,Urine Negative (Negative); Leukocyte Esterase,Urine Small (Negative); Mucus,Urine Many /hpf; Nitrite,Urine Negative (Negative); PH, Urine 5.5 (5.0-8.0); Protein,Urine 1+ (Negative); RBC,Urine 75 /hpf (0-5); Specific Gravity,Urine 1.027 (1.001-1.035); Squamous Epithelial Cell,Urine 8 /hpf (0-4); WBC,Urine 10 /hpf (0-5)
--- NOTE | 2022-09-10 19:34 | ED ---
Female Urogenital HPI - General Chief complaint: Urogenital Stated complaint: Urogenital Time Seen by Provider: 09/10/22 19:07 Source: patient, RN notes reviewed, old records reviewed Mode of arrival: ambulatory Limitations: no limitations - History of Present Illness Initial comments: This is a well-appearing 22-year-old female that presents with 4 days of dysuria with frequency. Patient's states had a urinary tract infection a couple years ago and feels the same. Denies any back pain fevers, nausea vomiting or diarrhea. No concern for . Denies vaginal discharge. No medical history. Does smoke marijuana daily. MD Complaint: dysuria -: days(s) (4) Severity scale (1-10): 5 Quality: burning Consistency: intermittent Worsens with: urination Last Menstrual Period: 08/20/22 Patient : No Associated Symptoms: denies other symptoms - Related Data Home Medications Medication Instructions Recorded Confirmed Acetaminophen-Codeine 300-30mg 1 tab PO Q6H PRN 02/06/21 02/06/21 [Tylenol w/codeine #3] polyethylene glycoL 3350 [Miralax] 17 gm PO DAILY PRN 02/06/21 02/06/21 Previous Rx's Medication Instructions Recorded Sucralfate [Carafate] 1 gm PO ACHS #40 tablet 02/06/21 Phenazopyridine [Pyridium] 200 mg PO TID #6 tablet 09/10/22 Sulfamethox-Tmp 800-160Mg [Bactrim 1 tab PO Q12HR 5 Days #10 tab 09/10/22 DS 800-160 mg] Allergies Allergy/AdvReac Type Severity Reaction Status Date / Time No Known Allergies Allergy Verified 07/13/22 17:25 Review of Systems ROS Statement: Those systems with pertinent positive or pertinent negative responses have been documented in the HPI. ROS Other: All systems not noted in ROS Statement are negative. Past Medical History Past Medical History: No Reported History Additional Past Medical History / Comment(s): seasonal allergies History of Any Multi-Drug Resistant Organisms: None Reported Past Surgical History: No Surgical Hx Reported Past Psychological History: No Psychological Hx Reported Smoking Status: Vaper Past Alcohol Use History: None Reported Past Drug Use History: Marijuana General Exam Limitations: no limitations General appearance: alert, in no apparent distress Head exam: Present: atraumatic Eye exam: Absent: scleral icterus, conjunctival injection, periorbital swelling, periorbital tenderness ENT exam: Present: mucous membranes moist Neck exam: Present: full ROM. Absent: tenderness, meningismus Respiratory exam: Present: normal lung sounds bilaterally. Absent: respiratory distress, accessory muscle use Cardiovascular Exam: Present: regular rate GI/Abdominal exam: Present: soft. Absent: rigid Extremities exam: Present: normal capillary refill. Absent: pedal edema, joint swelling, calf tenderness Back exam: Present: full ROM. Absent: tenderness, CVA tenderness (R), CVA tenderness (L) Neurological exam: Present: alert, oriented X3, normal gait Psychiatric exam: Present: normal affect, normal mood Skin exam: Present: warm, dry, normal color. Absent: cyanosis, diaphoretic, petechiae, pallor Course Vital Signs 09/10/22 18:54 Temperature 98 F Pulse Rate 78 Respiratory 16 Rate Blood Pressure 111/67 O2 Sat by Pulse 98 Oximetry Medical Decision Making - Medical Decision Making UA shows evidence of UTI. Patient will be treated with Bactrim states that she has an appointment on Tuesday. Patient was also given Pyridium Case discussed with Dr. Nuñez. Was pt. sent in by a medical professional or institution (, PA, PUG MILL OPERATOR HELPER, urgent care, hospital, or fdc...) When possible be specific @ -No Did you speak to anyone other than the patient for history (EMS, parent, family, police, friend...)? What history was obtained from this source @ -No Did you review nursing and triage notes (agree or disagree)? Why? @ -I reviewed and agree with nursing and triage notes Were old charts reviewed (outside hosp., previous admission, EMS record, old EKG, old radiological studies, urgent care reports/EKG's, fdc records)? Report findings @ -No old charts were reviewed Differential Diagnosis (chest pain, altered mental status, abdominal pain women, abdominal pain men, vaginal bleeding, weakness, fever, dyspnea, syncope, headache, dizziness, GI bleed, back pain, seizure, CVA, palpatations, mental health, musculoskeletal)? @ -UTI, cystitis, STI, this is not a all-inclusive list. EKG interpreted by me (3pts min.). @ -n/a X-rays interpreted by me (1pt min.). @ -None done CT interpreted by me (1pt min.). @ -None done U/S interpreted by me (1pt. min.). @ -None done What testing was considered but not performed or refused? (CT, X-rays, U/S, labs)? Why? @ -None What meds were considered but not given or refused? Why? @ -None Did you discuss the management of the patient with other professionals (professionals i.e. , PA, PUG MILL OPERATOR HELPER, lab, RT, psych nurse, social services technician, arabic teacher, teacher, pharmaceutical officer, immigration case manager)? Give summary @ -No Was smoking cessation discussed for >3mins.? @ -No Was critical care preformed (if so, how long)? @ -No Were there social determinants of health that impacted care today? How? (Homelessness, low income, unemployed, alcoholism, drug addiction, transportation, low edu. Level, literacy, decrease access to med. care, correction, rehab)? @ -No Was there de-escalation of care discussed even if they declined (Discuss DNR or withdrawal of care, Hospice)? DNR status @ -No What co-morbidities impacted this encounter? (DM, HTN, Smoking, COPD, CAD, Cancer, CVA, ARF, Chemo, Hep., AIDS, mental health diagnosis, sleep apnea, morbid obesity)? @ -None Was patient admitted / discharged? Hospital course, mention meds given and route, prescriptions, significant lab abnormalities, going to OR and other pertinent info. @ -Discharged Undiagnosed new problem with uncertain prognosis? @ -No Drug Therapy requiring intensive monitoring for toxicity (Heparin, Nitro, Insulin, Cardizem)? @ -No Were any procedures done? @ -No Diagnosis/symptom? @ -UTI Acute, or Chronic, or Acute on Chronic? @ -Acute Uncomplicated (without systemic symptoms) or Complicated (systemic symptoms)? @ -Uncomplicated Side effects of treatment? @ -No Exacerbation, Progression, or Severe Exacerbation? @ -No Poses a threat to life or bodily function? How? (Chest pain, [place], [place], pneumonia, PE, COPD, DKA, ARF, appy, cholecystitis, CVA, Diverticulitis, Homicidal, Suicidal, threat to staff... and all critical care pts) @ -No - Lab Data Lab Results 09/10/22 09/10/22 Range/Units 18:57 19:00 Urine Color Yellow Urine Appearance Cloudy H (Clear) Urine pH 5.5 (5.0-8.0) Ur Specific [place] 1.027 (1.001-1.035) Urine Protein 1+ H (Negative) Urine Glucose (UA) Negative (Negative) Urine Ketones Negative (Negative) Urine Blood Moderate H (Negative) Urine Nitrite Negative (Negative) Urine Bilirubin Negative (Negative) Urine Urobilinogen 2.0 (<2.0) mg/dL Ur Leukocyte Esterase Small H (Negative) Urine RBC 75 H (0-5) /hpf Urine WBC 10 H (0-5) /hpf Ur Squamous Epith Cells 8 H (0-4) /hpf Urine Bacteria Rare H (None) /hpf Urine Mucus Many H (None) /hpf Urine HCG, Qual Not Detected (Not Detectd) Disposition Clinical Impression: Urinary tract infection Disposition: HOME SELF-CARE Condition: Good Instructions (If sedation given, give patient instructions): Urinary Tract Infection in Women (ED) Additional Instructions: Take antibiotics as prescribed. Increase your fluid intake. Follow-up with your primary care doctor as scheduled on Tuesday for reevaluation. Return to the emergency room with any new or concerning symptoms including fevers, back pain or persistent nausea vomiting. Prescriptions: Sulfamethox-Tmp 800-160Mg [Bactrim DS 800-160 mg] 1 tab PO Q12HR 5 Days #10 tab Phenazopyridine [Pyridium] 200 mg PO TID #6 tablet Is patient prescribed a controlled substance at d/c from ED?: No Referrals: Bryan Persaud Jr, [Primary Care Provider] - 1-2 days Time of Disposition: 19:33
== END 2022-09-10 19:51 | disposition home or self-care (01) ==
LOC: EC 18:40
DX: N39.0 Urinary tract infection, site not specified (principal); F17.290 Nicotine dependence, other tobacco product, uncomplicated; F12.90 Cannabis use, unspecified, uncomplicated
CPT/HCPCS: 81001; 81025; 87086; 99283

== ENCOUNTER 2023-02-02 14:14 | Emergency (ER) | payer OTHER ==
[2023-02-02] MEDS ORDERED: PROPARACAINE 0.5% OPHTH DROPS 15 ML BTL LEFT EYE STA (15:43)
[2023-02-02] MEDS ORDERED: FLUORESCEIN STRIPS 1 MG STRIP RIGHT EYE ONE (15:43)
--- NOTE | 2023-02-02 16:08 | ED ---
Eye Problem HPI - General Chief complaint: Eye Problems Stated complaint: chemical in eye Time Seen by Provider: 02/02/23 16:06 Source: patient Mode of arrival: ambulatory Limitations: no limitations - History of Present Illness Initial comments: 22-year-old female presenting to the ED with a chief complaint of eye problem. Patient states that she got some hair products and her left eye approximately 2 hours prior to arrival. Since then notes blurred vision and irritation of the eye. Denies loss of vision. No drainage from the eye. No other complaints. - Related Data Home Medications Medication Instructions Recorded Confirmed Acetaminophen-Codeine 300-30mg 1 tab PO Q6H PRN 02/06/21 02/06/21 [Tylenol w/codeine #3] polyethylene glycoL 3350 [Miralax] 17 gm PO DAILY PRN 02/06/21 02/06/21 Previous Rx's Medication Instructions Recorded Sucralfate [Carafate] 1 gm PO ACHS #40 tablet 02/06/21 Phenazopyridine [Pyridium] 200 mg PO TID #6 tablet 09/10/22 Sulfamethox-Tmp 800-160Mg [Bactrim 1 tab PO Q12HR 5 Days #10 tab 09/10/22 DS 800-160 mg] Artificial Tears-Hypromellose 1 drops LEFT EYE TID #10 ml 02/02/23 [Artificial Tear Drops] Allergies Allergy/AdvReac Type Severity Reaction Status Date / Time No Known Allergies Allergy Verified 02/02/23 15:03 Review of Systems ROS Statement: Those systems with pertinent positive or pertinent negative responses have been documented in the HPI. ROS Other: All systems not noted in ROS Statement are negative. Past Medical History Past Medical History: No Reported History Additional Past Medical History / Comment(s): seasonal allergies History of Any Multi-Drug Resistant Organisms: None Reported Past Surgical History: No Surgical Hx Reported Past Psychological History: No Psychological Hx Reported Smoking Status: Vaper Past Alcohol Use History: Occasional Past Drug Use History: Marijuana General Exam Limitations: no limitations General appearance: alert, in no apparent distress Head exam: Present: atraumatic, normocephalic Eye exam: Present: normal appearance, PERRL, EOMI, other (Visual acuity 20/20. Ocular pressure 17 left eye 18 right eye. No drainage on exam. Fluorescein exam shows no evidence of corneal abrasion.) Respiratory exam: Present: normal lung sounds bilaterally Cardiovascular Exam: Present: regular rate, normal rhythm Back exam: Present: normal inspection Skin exam: Present: warm, dry Course Vital Signs 02/02/23 14:59 Temperature 99.1 F Pulse Rate 97 Respiratory 18 Rate Blood Pressure 109/68 O2 Sat by Pulse 98 Oximetry Medical Decision Making - Medical Decision Making Was pt. sent in by a medical professional or institution (ERNIE Crawford, [employer], urgent care, hospital, or custodial...) When possible be specific @ -No Did you speak to anyone other than the patient for history (EMS, parent, family, police, friend...)? What history was obtained from this source @ -No Did you review nursing and triage notes (agree or disagree)? Why? @ -I reviewed and agree with nursing and triage notes Were old charts reviewed (outside hosp., previous admission, EMS record, old EKG, old radiological studies, urgent care reports/EKG's, custodial records)? Report findings @ -No old charts were reviewed Differential Diagnosis (chest pain, altered mental status, abdominal pain women, abdominal pain men, vaginal bleeding, weakness, fever, dyspnea, syncope, headache, dizziness, GI bleed, back pain, seizure, CVA, palpatations, mental health, musculoskeletal)? @ -Corneal abrasion, corneal laceration, chemical damaged eye. This is not meant to be an all-inclusive list. EKG interpreted by me (3pts min.). @ -None X-rays interpreted by me (1pt min.). @ -None done CT interpreted by me (1pt min.). @ -None done U/S interpreted by me (1pt. min.). @ -None done What testing was considered but not performed or refused? (CT, X-rays, U/S, labs)? Why? @ -None What meds were considered but not given or refused? Why? @ -None Did you discuss the management of the patient with other professionals (professionals i.e. ERNIE Crawford, [employer], lab, RT, psych nurse, social service director, finish painter, teacher, national service officer, case management social worker)? Give summary @ -No Was smoking cessation discussed for >3mins.? @ -No Was critical care preformed (if so, how long)? @ -No Were there social determinants of health that impacted care today? How? (Homelessness, low income, unemployed, alcoholism, drug addiction, transportation, low edu. Level, literacy, decrease access to med. care, retirement, rehab)? @ -No Was there de-escalation of care discussed even if they declined (Discuss DNR or withdrawal of care, Hospice)? DNR status @ -No What co-morbidities impacted this encounter? (DM, HTN, Smoking, COPD, CAD, Cancer, CVA, ARF, Chemo, Hep., AIDS, mental health diagnosis, sleep apnea, morbid obesity)? @ -None Was patient admitted / discharged? Hospital course, mention meds given and route, prescriptions, significant lab abnormalities, going to OR and other pertinent info. @ -Discharge. Patient has good pressures of her eyes bilaterally. No exam of corneal abrasion on fluorescein exam. Vision 20/20. Eye was irrigated. Patient tolerated this well. Patient discharged home in stable condition. Provided prescription for lidocaine eyedrops. Discussed return precautions patient who verbalizes agreement. Undiagnosed new problem with uncertain prognosis? @ -No Drug Therapy requiring intensive monitoring for toxicity (Heparin, Nitro, Insulin, Cardizem)? @ -No Were any procedures done? @ -No Diagnosis/symptom? @ -Chemical exposure to left eye. Acute, or Chronic, or Acute on Chronic? @ -Acute Uncomplicated (without systemic symptoms) or Complicated (systemic symptoms)? @ -Uncomplicated Side effects of treatment? @ -No Exacerbation, Progression, or Severe Exacerbation? @ -No Poses a threat to life or bodily function? How? (Chest pain, [place], [place], pneumonia, PE, COPD, DKA, ARF, appy, cholecystitis, CVA, Diverticulitis, Homicidal, Suicidal, threat to staff... and all critical care pts) @ -No Disposition Clinical Impression: Chemical insult, eye Disposition: HOME SELF-CARE Condition: Good Instructions (If sedation given, give patient instructions): Eye Lubricant (Into the eye), Eye Wash (Into the eye) Additional Instructions: Please return to the Emergency Department if symptoms worsen or any other concerns. Prescriptions: Artificial Tears-Hypromellose [Artificial Tear Drops] 1 drops LEFT EYE TID #10 ml Is patient prescribed a controlled substance at d/c from ED?: No Referrals: Bryan Persaud Jr, DO [Primary Care Provider] - 1-2 days Time of Disposition: 16:12
[2023-02-02 16:47] VITALS: BP 112/74; PULSE 81; RESP 16; TEMP 98
== END 2023-02-02 17:05 | disposition home or self-care (01) ==
LOC: EC 14:14
DX: T26.52XA Corrosion of left eyelid and periocular area, initial encounter (principal); F17.290 Nicotine dependence, other tobacco product, uncomplicated; F12.90 Cannabis use, unspecified, uncomplicated
CPT/HCPCS: 99283

== ENCOUNTER 2023-02-22 17:54 | Emergency (ER) | payer OTHER ==
[2023-02-22 18:40] LABS: Appearance,Urine Turbid (Clear); Bacteria,Urine Few /hpf; Bilirubin,Urine Negative (Negative); Blood,Urine Negative (Negative); Color,Urine Yellow; Glucose,Urine (UA) Negative (Negative); Ketones,Urine Negative (Negative); Leukocyte Esterase,Urine Moderate (Negative); Mucus,Urine Many /hpf; Nitrite,Urine Negative (Negative); PH, Urine 5.5 (5.0-8.0); Protein,Urine Trace (Negative); RBC,Urine 5 /hpf (0-5); Specific Gravity,Urine 1.027 (1.001-1.035); Squamous Epithelial Cell,Urine 39 /hpf (0-4); Urobilinogen,Urine <2.0 mg/dL (<2.0); WBC,Urine 11 /hpf (0-5)
--- NOTE | 2023-02-22 20:17 | ED ---
Female Urogenital HPI - General Chief complaint: Urogenital Stated complaint: PAIN W ELIMINATION Time Seen by Provider: 02/22/23 18:55 Source: patient Mode of arrival: ambulatory Limitations: no limitations - History of Present Illness Initial comments: 22-year-old female with no significant past medical history presented to the ED with a chief complaint of UTI. Patient states for the past day, has had pain with urination and urgency. Denies vaginal discharge. Has no concern about STDs. Denies back pain. No abdominal pain nausea vomiting diarrhea. Denies fever. No other complaints. Last Menstrual Period: 02/11/23 - Related Data Home Medications Medication Instructions Recorded Confirmed Acetaminophen-Codeine 300-30mg 1 tab PO Q6H PRN 02/06/21 02/06/21 [Tylenol w/codeine #3] polyethylene glycoL 3350 [Miralax] 17 gm PO DAILY PRN 02/06/21 02/06/21 Previous Rx's Medication Instructions Recorded Sucralfate [Carafate] 1 gm PO ACHS #40 tablet 02/06/21 Phenazopyridine [Pyridium] 200 mg PO TID #6 tablet 09/10/22 Sulfamethox-Tmp 800-160Mg [Bactrim 1 tab PO Q12HR 5 Days #10 tab 09/10/22 DS 800-160 mg] Artificial Tears-Hypromellose 1 drops LEFT EYE TID #10 ml 02/02/23 [Artificial Tear Drops] Nitrofurantoin Monohyd/M-Cryst 100 mg PO Q12HR #14 cap 02/22/23 [Macrobid] Phenazopyridine HCl 200 mg PO TID PRN #9 tablet 02/22/23 Allergies Allergy/AdvReac Type Severity Reaction Status Date / Time No Known Allergies Allergy Verified 02/02/23 15:03 Review of Systems ROS Statement: Those systems with pertinent positive or pertinent negative responses have been documented in the HPI. ROS Other: All systems not noted in ROS Statement are negative. Past Medical History Past Medical History: No Reported History Additional Past Medical History / Comment(s): seasonal allergies History of Any Multi-Drug Resistant Organisms: None Reported Past Surgical History: No Surgical Hx Reported Past Psychological History: No Psychological Hx Reported Smoking Status: Vaper Past Alcohol Use History: Occasional Past Drug Use History: Marijuana General Exam Limitations: no limitations General appearance: alert, in no apparent distress Head exam: Present: normal inspection Eye exam: Present: normal appearance Neck exam: Present: normal inspection Respiratory exam: Present: normal lung sounds bilaterally Cardiovascular Exam: Present: regular rate, normal rhythm GI/Abdominal exam: Present: soft (No Tenderness to palpation. No rebound guarding or rigidity. No CVA tenderness to percussion bilaterally.) Neurological exam: Present: alert, oriented X3 Skin exam: Present: warm, dry Course Vital Signs 02/22/23 17:56 Temperature 98.2 F Pulse Rate 89 Respiratory 16 Rate Blood Pressure 107/76 O2 Sat by Pulse 100 Oximetry Medical Decision Making - Medical Decision Making Was pt. sent in by a medical professional or institution (, PA, [employer], urgent care, hospital, or fdc...) When possible be specific @ -No Did you speak to anyone other than the patient for history (EMS, parent, family, police, friend...)? What history was obtained from this source @ -No Did you review nursing and triage notes (agree or disagree)? Why? @ -I reviewed and agree with nursing and triage notes Were old charts reviewed (outside hosp., previous admission, EMS record, old EKG, old radiological studies, urgent care reports/EKG's, fdc records)? Report findings @ -No old charts were reviewed Differential Diagnosis (chest pain, altered mental status, abdominal pain women, abdominal pain men, vaginal bleeding, weakness, fever, dyspnea, syncope, headache, dizziness, GI bleed, back pain, seizure, CVA, palpatations, mental health, musculoskeletal)? @ -Differential Abdominal Pain Women: Appendicitis, Cholecystitis, diverticulosis, ischemic bowel, pancreatitis, hepatitis, UTI, gastroenteritis, AAA, incarcerated hernia, bowel obstruction, constipation, inflammatory bowel, hepatitis, peptic ulcer disease, splenic infarction, perforated viscus, vulvitis, ovarian torsion, PID, kidney stone, placenta abruption, this is not meant to be an all-inclusive list EKG interpreted by me (3pts min.). @ -None X-rays interpreted by me (1pt min.). @ -None done CT interpreted by me (1pt min.). @ -None done U/S interpreted by me (1pt. min.). @ -None done What testing was considered but not performed or refused? (CT, X-rays, U/S, labs)? Why? @ -None What meds were considered but not given or refused? Why? @ -None Did you discuss the management of the patient with other professionals (professionals i.e. , PA, [employer], lab, RT, psych nurse, social studies department chair, autopsy assistant, teacher, optics technical officer, assistant case manager)? Give summary @ -No Was smoking cessation discussed for >3mins.? @ -No Was critical care preformed (if so, how long)? @ -No Were there social determinants of health that impacted care today? How? (Homelessness, low income, unemployed, alcoholism, drug addiction, transportation, low edu. Level, literacy, decrease access to med. care, nursing home, rehab)? @ -No Was there de-escalation of care discussed even if they declined (Discuss DNR or withdrawal of care, Hospice)? DNR status @ -No What co-morbidities impacted this encounter? (DM, HTN, Smoking, COPD, CAD, Cancer, CVA, ARF, Chemo, Hep., AIDS, mental health diagnosis, sleep apnea, morbid obesity)? @ -None Was patient admitted / discharged? Hospital course, mention meds given and route, prescriptions, significant lab abnormalities, going to OR and other pertinent info. @ -Discharge A 22-year-old female presents with one-day history of dysuria and urgency. UA significant for few bacteria, 30 specimen with 39, cells, 11 WBCs, and positive leukocytes esterase however nitrites negative. At this time, patient afebrile and vital signs stable. Has no flank tenderness to percussion bilaterally. Urine culture obtained. Provided prescription for Macrobid and Azo. Discharged home in stable condition. Discussed return precautions with patient who verbalizes agreement. Undiagnosed new problem with uncertain prognosis? @ -No Drug Therapy requiring intensive monitoring for toxicity (Heparin, Nitro, Insulin, Cardizem)? @ -No Were any procedures done? @ -No Diagnosis/symptom? @ -Urinary tract infection Acute, or Chronic, or Acute on Chronic? @ -Acute Uncomplicated (without systemic symptoms) or Complicated (systemic symptoms)? @ -Uncomplicated Side effects of treatment? @ -No Exacerbation, Progression, or Severe Exacerbation? @ -No Poses a threat to life or bodily function? How? (Chest pain, [place], [place], pneumonia, PE, COPD, DKA, ARF, appy, cholecystitis, CVA, Diverticulitis, Homicidal, Suicidal, threat to staff... and all critical care pts) @ -No - Lab Data Lab Results 02/22/23 Range/Units 18:33 Urine Color Yellow Urine Appearance Turbid H (Clear) Urine pH 5.5 (5.0-8.0) Ur Specific [place] 1.027 (1.001-1.035) Urine Protein Trace H (Negative) Urine Glucose (UA) Negative (Negative) Urine Ketones Negative (Negative) Urine Blood Negative (Negative) Urine Nitrite Negative (Negative) Urine Bilirubin Negative (Negative) Urine Urobilinogen <2.0 (<2.0) mg/dL Ur Leukocyte Esterase Moderate H (Negative) Urine RBC 5 (0-5) /hpf Urine WBC 11 H (0-5) /hpf Ur Squamous Epith Cells 39 H (0-4) /hpf Urine Bacteria Few H (None) /hpf Urine Mucus Many H (None) /hpf Disposition Clinical Impression: Urinary tract infection Disposition: HOME SELF-CARE Condition: Good Instructions (If sedation given, give patient instructions): Urinary Tract Infection in Women (ED) Additional Instructions: Please return to the Emergency Department if symptoms worsen or any other concerns. Prescriptions: Nitrofurantoin Monohyd/M-Cryst [Macrobid] 100 mg PO Q12HR #14 cap Phenazopyridine HCl 200 mg PO TID PRN #9 tablet PRN Reason: Pain Is patient prescribed a controlled substance at d/c from ED?: No Referrals: Bryan Persaud Jr, [Primary Care Provider] - 1-2 days Time of Disposition: 20:17
[2023-02-22 20:35] VITALS: BP 124/70; PULSE 72; RESP 18; TEMP 98
== END 2023-02-22 20:34 | disposition home or self-care (01) ==
LOC: EC 17:54
DX: N39.0 Urinary tract infection, site not specified (principal); F17.290 Nicotine dependence, other tobacco product, uncomplicated; F12.90 Cannabis use, unspecified, uncomplicated
CPT/HCPCS: 81001; 99283

== ENCOUNTER 2023-02-27 09:44 | Emergency (ER) | payer OTHER ==
[2023-02-27 10:58] VITALS: BP 99/62; PULSE 77; RESP 18; TEMP 98.6
[2023-02-27 11:05] LABS: Appearance,Urine Turbid (Clear); Bacteria,Urine Few /hpf; Bilirubin,Urine Negative (Negative); Blood,Urine Large (Negative); Budding Yeast,Urine Many /hpf; Color,Urine Dark Brown; Glucose,Urine (UA) Negative (Negative); Ketones,Urine Trace (Negative); Leukocyte Esterase,Urine Large (Negative); Mucus,Urine Many /hpf; Nitrite,Urine Negative (Negative); PH, Urine 5.5 (5.0-8.0); Protein,Urine 2+ (Negative); RBC,Urine >182 /hpf (0-5); Specific Gravity,Urine 1.022 (1.001-1.035); Squamous Epithelial Cell,Urine 39 /hpf (0-4); Urobilinogen,Urine <2.0 mg/dL (<2.0); WBC,Urine >182 /hpf (0-5)
--- NOTE | 2023-02-27 11:18 | ED ---
Female Urogenital HPI - General Chief complaint: Urogenital Stated complaint: UTI Time Seen by Provider: 02/27/23 10:47 Source: patient, RN notes reviewed Mode of arrival: ambulatory Limitations: no limitations - History of Present Illness Initial comments: This is a 22-year-old female who presents to the emergency department for concerns of a UTI. Patient was evaluated here 5 days ago and diagnosed with UTI. She was given a prescription for Macrobid and Pyridium. States that she's been unable to take the Macrobid, as she cannot swallow pills and she is unable to dissolve the pills in chicken broth, which is what she typically does with pills. She does continue to have burning with urination, lower abdominal pain, and some back pain. Denies any fevers or chills. She is requesting an alternative antibiotic. Declines the need for further workup at this time. Denies any fevers, chills, sore throat, cough, dyspnea, chest pain, p alpitations, nausea, vomiting, diarrhea, or headaches. - Related Data Home Medications Medication Instructions Recorded Confirmed Acetaminophen-Codeine 300-30mg 1 tab PO Q6H PRN 02/06/21 02/06/21 [Tylenol w/codeine #3] polyethylene glycoL 3350 [Miralax] 17 gm PO DAILY PRN 02/06/21 02/06/21 Previous Rx's Medication Instructions Recorded Sucralfate [Carafate] 1 gm PO ACHS #40 tablet 02/06/21 Phenazopyridine [Pyridium] 200 mg PO TID #6 tablet 09/10/22 Sulfamethox-Tmp 800-160Mg [Bactrim 1 tab PO Q12HR 5 Days #10 tab 09/10/22 DS 800-160 mg] Artificial Tears-Hypromellose 1 drops LEFT EYE TID #10 ml 02/02/23 [Artificial Tear Drops] Nitrofurantoin Monohyd/M-Cryst 100 mg PO Q12HR #14 cap 02/22/23 [Macrobid] Phenazopyridine HCl 200 mg PO TID PRN #9 tablet 02/22/23 Sulfamethox-Tmp 200-40Mg/5Ml 20 ml PO Q12HR 7 Days #300 ml 02/27/23 [Bactrim Suspension] Allergies Allergy/AdvReac Type Severity Reaction Status Date / Time No Known Allergies Allergy Verified 02/27/23 10:03 Review of Systems ROS Statement: Those systems with pertinent positive or pertinent negative responses have been documented in the HPI. ROS Other: All systems not noted in ROS Statement are negative. Past Medical History Past Medical History: No Reported History Additional Past Medical History / Comment(s): seasonal allergies History of Any Multi-Drug Resistant Organisms: None Reported Past Surgical History: No Surgical Hx Reported Past Psychological History: No Psychological Hx Reported Smoking Status: Vaper Past Alcohol Use History: Occasional Past Drug Use History: Marijuana General Exam Limitations: no limitations General appearance: alert, in no apparent distress Head exam: Present: atraumatic, normocephalic, normal inspection Respiratory exam: Present: normal lung sounds bilaterally. Absent: respiratory distress, wheezes, rales, rhonchi, stridor Cardiovascular Exam: Present: regular rate, normal rhythm, normal heart sounds. Absent: systolic murmur, diastolic murmur, rubs, gallop, clicks GI/Abdominal exam: Present: soft, normal bowel sounds. Absent: distended, tenderness, guarding, rebound, rigid Back exam: Absent: CVA tenderness (R), CVA tenderness (L) Neurological exam: Present: alert, oriented X3, CN II-XII intact Psychiatric exam: Present: normal affect, normal mood Skin exam: Present: warm, dry, intact, normal color. Absent: rash Course Vital Signs 02/27/23 02/27/23 10:01 10:54 Temperature 98.3 F 98.6 F Pulse Rate 80 77 Respiratory 20 18 Rate Blood Pressure 114/80 99/62 O2 Sat by Pulse 96 99 Oximetry Medical Decision Making - Medical Decision Making This is a 22-year-old female who presents to the emergency department requesting an alternative antibiotic for her UTI. Was pt. sent in by a medical professional or institution? @ -No Did you speak to anyone other than the patient for history? @ -No Did you review nursing and triage notes? @ -Yes, and I agree, it is accurate with regards to the patient's symptoms. Were old charts reviewed? @ -No Differential Diagnosis? @ -Differential Dysuria: UTI, pyelonephritis, STD, renal calculus, this is not meant to be an all- inclusive list. EKG interpreted by me (3pts min.)? @ -Not obtained X-rays interpreted by me (1pt min.)? @ -Not obtained CT interpreted by me (1pt min.)? @ -Not obtained U/S interpreted by me (1pt. min.)? @ -Not obtained What testing was considered but not performed? (CT, X-rays, U/S, labs)? Why? @ -I offered to obtain basic lab work, including a CBC, CMP, and lactic acid to evaluate for the severity of infection given that she has not been taking her antibiotics. However, the patient declined and wishes to start with new antibiotics before proceeding with this. What meds were considered but not given? Why? @ -Not obtained Did you discuss the management of the patient with other professionals? @ -No Did you reconcile home meds? @ -No Was smoking cessation discussed for >3mins.? @ -No Was critical care preformed (if so, how long)? @ -No Were there social determinants of health that impacted care today? How? (Homelessness, low income, unemployed, alcoholism, drug addiction, transportation, low edu. Level, literacy, decrease access to med. care, intermediate, rehab)? @ -No Was there de-escalation of care discussed even if they declined? (Discuss DNR or withdrawal of care, Hospice)? @ -No What co-morbidities impacted this encounter? (DM, HTN, Smoking, COPD, CAD, Cancer, CVA, Hep., AIDS, mental health diagnosis, sleep apnea, morbid obesity)? @ -None Was patient admitted / discharged? @ -Discharged. Urinalysis repeated and is still consistent with infection. Discussed with the patient that because she has not been on antibiotics over the last 5 days, there is concern for worsening infection and we can proceed with additional workup including laboratory studies. However, patient declined and wishes to start with a new antibiotic before proceeding with this. She was given a prescription for the liquid form of Bactrim with dosing instructions reviewed. She does still have the Pyridium that she will use as needed. Otherwise advised follow-up with her PCP. Undiagnosed new problem with uncertain prognosis? @ -None Drug Therapy requiring intensive monitoring for toxicity (Heparin, Nitro, Insulin, Cardizem)? @ -None Were any procedures done? @ -None Diagnosis/symptom? @ -UTI Acute, or Chronic, or Acute on Chronic? @ -Acute Uncomplicated (without systemic symptoms) or Complicated (systemic symptoms)? @ -Uncomplicated Side effects of treatment? @ -None Exacerbation, Progression, or Severe Exacerbation] @ -Not applicable Poses a threat to life or bodily function? @ -No Return precautions reviewed in depth, the patient is instructed to return to the emergency department with any new, worsening, or concerning symptoms. Patient verbalized understanding. This case was discussed in detail with the attending ED physician, Dr. Shelley. Presentation, findings, and treatment plan discussed in detail as well. - Lab Data Lab Results 02/27/23 Range/Units 10:43 Urine Color Dark Brown Urine Appearance Turbid H (Clear) Urine pH 5.5 (5.0-8.0) Ur Specific [place] 1.022 (1.001-1.035) Urine Protein 2+ H (Negative) Urine Glucose (UA) Negative (Negative) Urine Ketones Trace H (Negative) Urine Blood Large H (Negative) Urine Nitrite Negative (Negative) Urine Bilirubin Negative (Negative) Urine Urobilinogen <2.0 (<2.0) mg/dL Ur Leukocyte Esterase Large H (Negative) Urine RBC >182 H (0-5) /hpf Urine WBC >182 H (0-5) /hpf Ur Squamous Epith Cells 39 H (0-4) /hpf Urine Bacteria Few H (None) /hpf Urine Mucus Many H (None) /hpf Urine Yeast (Budding) Many H (None) /hpf Disposition Clinical Impression: UTI (urinary tract infection) Disposition: HOME SELF-CARE Instructions (If sedation given, give patient instructions): Urinary Tract Infection in Women (ED) Additional Instructions: Return to the emergency department with any new, worsening, or concerning symptoms. Take the antibiotic as prescribed for 7 days. Continue to use the Pyridium as needed. Follow up with your primary care provider in 1-2 days. Prescriptions: Sulfamethox-Tmp 200-40Mg/5Ml [Bactrim Suspension] 20 ml PO Q12HR 7 Days #300 ml Is patient prescribed a controlled substance at d/c from ED?: No Referrals: Bryan Persaud Jr, [Primary Care Provider] - 1-2 days
== END 2023-02-27 11:34 | disposition home or self-care (01) ==
LOC: EC 09:44
DX: N39.0 Urinary tract infection, site not specified (principal); F17.290 Nicotine dependence, other tobacco product, uncomplicated; F12.90 Cannabis use, unspecified, uncomplicated
CPT/HCPCS: 81001; 87086; 99283

== ENCOUNTER 2023-04-29 17:13 | Emergency (ER) | payer OTHER ==
[2023-04-29 18:06] VITALS: BP 138/81; PULSE 67; RESP 20; TEMP 98
[2023-04-29 18:15] LABS: Appearance,Urine Turbid (Clear); Bilirubin,Urine Negative (Negative); Blood,Urine Large (Negative); Color,Urine Red; Glucose,Urine (UA) Negative (Negative); Ketones,Urine Trace (Negative); Leukocyte Esterase,Urine Large (Negative); Mucus,Urine Many /hpf; Nitrite,Urine Negative (Negative); PH, Urine 5.5 (5.0-8.0); Protein,Urine 2+ (Negative); RBC,Urine >182 /hpf (0-5); Specific Gravity,Urine 1.027 (1.001-1.035); Squamous Epithelial Cell,Urine 20 /hpf (0-4); Urobilinogen,Urine <2.0 mg/dL (<2.0); WBC,Urine >182 /hpf (0-5)
[2023-04-29] MEDS ORDERED: CEPHALEXIN 250 MG/5 ML SUSPENSION PO STA (19:26)
--- NOTE | 2023-04-29 19:26 | ED ---
Female Urogenital HPI - General Chief complaint: Urogenital Stated complaint: UTI Source: patient Mode of arrival: ambulatory Limitations: no limitations - History of Present Illness Initial comments: 23-year-old female presenting with chief complaint of UTI like symptoms. Patient admits to dysuria, hematuria, urgency, frequency. Has been ongoing for 2-3 days. No fever, flank pain, nausea, vomiting. Patient states she has had previous UTIs and has not finished her antibiotics. No abdominal pain, diarrhea, vaginal bleeding or discharge. - Related Data Home Medications Medication Instructions Recorded Confirmed Acetaminophen-Codeine 300-30mg 1 tab PO Q6H PRN 02/06/21 02/06/21 [Tylenol w/codeine #3] polyethylene glycoL 3350 [Miralax] 17 gm PO DAILY PRN 02/06/21 02/06/21 Previous Rx's Medication Instructions Recorded Sucralfate [Carafate] 1 gm PO ACHS #40 tablet 02/06/21 Phenazopyridine [Pyridium] 200 mg PO TID #6 tablet 09/10/22 Sulfamethox-Tmp 800-160Mg [Bactrim 1 tab PO Q12HR 5 Days #10 tab 09/10/22 DS 800-160 mg] Artificial Tears-Hypromellose 1 drops LEFT EYE TID #10 ml 02/02/23 [Artificial Tear Drops] Nitrofurantoin Monohyd/M-Cryst 100 mg PO Q12HR #14 cap 02/22/23 [Macrobid] Phenazopyridine HCl 200 mg PO TID PRN #9 tablet 02/22/23 Sulfamethox-Tmp 200-40Mg/5Ml 20 ml PO Q12HR 7 Days #300 ml 02/27/23 [Bactrim Suspension] cephALEXin [Keflex Oral Susp] 10 ml PO BID 7 Days #140 ml 04/29/23 Allergies Allergy/AdvReac Type Severity Reaction Status Date / Time No Known Allergies Allergy Verified 04/29/23 17:48 Review of Systems ROS Statement: Those systems with pertinent positive or pertinent negative responses have been documented in the HPI. ROS Other: All systems not noted in ROS Statement are negative. Past Medical History Past Medical History: No Reported History Additional Past Medical History / Comment(s): seasonal allergies History of Any Multi-Drug Resistant Organisms: None Reported Past Surgical History: No Surgical Hx Reported Past Psychological History: No Psychological Hx Reported Smoking Status: Vaper Past Alcohol Use History: Occasional Past Drug Use History: Marijuana General Exam Limitations: no limitations General appearance: alert, in no apparent distress Head exam: Present: atraumatic, normocephalic, normal inspection Eye exam: Present: normal appearance, EOMI Neck exam: Present: normal inspection, full ROM Respiratory exam: Absent: respiratory distress GI/Abdominal exam: Absent: distended Extremities exam: Present: normal inspection Neurological exam: Present: alert, oriented X3 Psychiatric exam: Present: normal affect, normal mood Skin exam: Present: warm, dry, intact, normal color. Absent: rash Course Vital Signs 04/29/23 17:46 Temperature 98 F Pulse Rate 67 Respiratory 20 Rate Blood Pressure 138/81 O2 Sat by Pulse 99 Oximetry Medical Decision Making - Medical Decision Making Was pt. sent in by a medical professional or institution (ERNIE Crawford, DIGITAL SOLUTION ARCHITECT, urgent care, hospital, or fdc...) When possible be specific @ -No Did you speak to anyone other than the patient for history (EMS, parent, family, police, friend...)? What history was obtained from this source @ -No Did you review nursing and triage notes (agree or disagree)? Why? @ -I reviewed and agree with nursing and triage notes Were old charts reviewed (outside hosp., previous admission, EMS record, old EKG, old radiological studies, urgent care reports/EKG's, fdc records)? Report findings @ -No old charts were reviewed Differential Diagnosis (chest pain, altered mental status, abdominal pain women, abdominal pain men, vaginal bleeding, weakness, fever, dyspnea, syncope, headache, dizziness, GI bleed, back pain, seizure, CVA, palpatations, mental health, musculoskeletal)? @ -Differential includes UTI, kidney stone, pyelonephritis, this is not an all inclusive list EKG interpreted by me (3pts min.). @ -As above X-rays interpreted by me (1pt min.). @ -None done CT interpreted by me (1pt min.). @ -None done U/S interpreted by me (1pt. min.). @ -None done What testing was considered but not performed or refused? (CT, X-rays, U/S, labs)? Why? @ -None What meds were considered but not given or refused? Why? @ -None Did you discuss the management of the patient with other professionals (professionals i.e. Dr., PA, DIGITAL SOLUTION ARCHITECT, lab, RT, psych nurse, social research assistant, head of design, teacher, chief data officer, case repairer)? Give summary @ -No Was smoking cessation discussed for >3mins.? @ -No Was critical care preformed (if so, how long)? @ -No Were there social determinants of health that impacted care today? How? (Homelessness, low income, unemployed, alcoholism, drug addiction, transportation, low edu. Level, literacy, decrease access to med. care, shelter, rehab)? @ -No Was there de-escalation of care discussed even if they declined (Discuss DNR or withdrawal of care, Hospice)? DNR status @ -No What co-morbidities impacted this encounter? (DM, HTN, Smoking, COPD, CAD, Cancer, CVA, ARF, Chemo, Hep., AIDS, mental health diagnosis, sleep apnea, morbid obesity)? @ -None Was patient admitted / discharged? Hospital course, mention meds given and route, prescriptions, significant lab abnormalities, going to OR and other pertinent info. @ -23-year-old female presenting with chief complaint of UTI like symptoms. Urine is consistent with UTI. Patient will be treated with Keflex, she requests the liquid form as she has difficulty swallowing pills. Urine culture and STI testing are sent. Follow-up with PCP. Report back to ER with any new or worsening symptoms. Discussed return parameters and answered all questions. Patient conveyed verbal understanding and agreed to the plan. I discussed this case in detail with my attending Dr. Shelley Undiagnosed new problem with uncertain prognosis? @ -No Drug Therapy requiring intensive monitoring for toxicity (Heparin, Nitro, Insulin, Cardizem)? @ -No Were any procedures done? @ -No Diagnosis/symptom? @ -UTI Acute, or Chronic, or Acute on Chronic? @ acute Uncomplicated (without systemic symptoms) or Complicated (systemic symptoms)? @ -Uncomplicated Side effects of treatment? @ -No Exacerbation, Progression, or Severe Exacerbation? @ -No Poses a threat to life or bodily function? How? (Chest pain, [place], [place], pneumonia, PE, COPD, DKA, ARF, appy, cholecystitis, CVA, Diverticulitis, Homicidal, Suicidal, threat to staff... and all critical care pts) @ -No - Lab Data Lab Results 04/29/23 04/29/23 Range/Units 17:57 17:57 Urine Color Red Urine Appearance Turbid H (Clear) Urine pH 5.5 (5.0-8.0) Ur Specific [place] 1.027 (1.001-1.035) Urine Protein 2+ H (Negative) Urine Glucose (UA) Negative (Negative) Urine Ketones Trace H (Negative) Urine Blood Large H (Negative) Urine Nitrite Negative (Negative) Urine Bilirubin Negative (Negative) Urine Urobilinogen <2.0 (<2.0) mg/dL Ur Leukocyte Esterase Large H (Negative) Urine RBC >182 H (0-5) /hpf Urine WBC >182 H (0-5) /hpf Ur Squamous Epith Cells 20 H (0-4) /hpf Urine Mucus Many H (None) /hpf Urine HCG, Qual Not Detected (Not Detectd) Disposition Clinical Impression: Urinary tract infection Disposition: HOME SELF-CARE Condition: Good Instructions (If sedation given, give patient instructions): Urinary Tract Infection in Women (ED) Additional Instructions: Follow up with PCP. Report back to ER with any new or worsening symptoms. Prescriptions: cephALEXin [Keflex Oral Susp] 10 ml PO BID 7 Days #140 ml Is patient prescribed a controlled substance at d/c from ED?: No Referrals: Bryan Persaud Jr, DO [Primary Care Provider] - 1-2 days Time of Disposition: 19:24
[2023-04-29] MEDS ORDERED: PHENAZOPYRIDINE 200 MG TAB PO STA (19:27)
[2023-05-02 16:25] LABS: C. trachomatis,PCR Negative (Negative); N. gonorrhoeae,PCR Negative (Negative)
== END 2023-04-29 21:04 | disposition home or self-care (01) ==
LOC: EC 17:13
DX: N39.0 Urinary tract infection, site not specified (principal); B95.7 Other staphylococcus as the cause of diseases classified elsewhere; F17.290 Nicotine dependence, other tobacco product, uncomplicated; F12.90 Cannabis use, unspecified, uncomplicated
CPT/HCPCS: 81001; 81025; 87077; 87086; 87186; 87491; 87591; 99283

== ENCOUNTER → 2023-10-04 | Outpatient (CLI) | payer OTHER ==
--- NOTE | 2023-10-06 08:42 | US ---
EXAMINATION TYPE: US transvaginal DATE OF EXAM: 10/04/2023 COMPARISON: NONE CLINICAL INDICATION: Female, 23 years old with history of R10.2 PELVIC AND PERINEAL PAIN; Pelvic disc omfort. Change in menses. TECHNIQUE: Transvaginal (TV). Transvaginal sonographic images of the pelvis were acquired. Date of LMP: 09/30/2023, G0 EXAM MEASUREMENTS: Uterus: 7.2 x 4.2 x 3.2 cm Endometrial Stripe: 0.2 cm Right Ovary: 2.9 x 2.3 x 1.8 cm Left Ovary: 2.8 x 1.7 x 1.9 cm 1. Uterus: Anteverted No prominent masses or lesions seen 2. Endometrium: No thickening, masses or lesions seen 3. Right Ovary: Follicles seen 4. Left Ovary: Follicles seen 5. Bilateral Adnexa: No prominent masses or lesions seen 6. Posterior cul-de-sac: No free fluid 7. Cervix- No prominent masses or lesions seen Blood flow is demonstrated to both ovaries excluding torsion. IMPRESSION: No significant abnormality seen of the uterus, ovaries or adnexa. No free fluid in the cu l-de-sac.
== END | disposition home or self-care (01) ==
LOC: RADUSWWP 15:34
PROVIDERS: ATTEND Family Medicine
DX: R10.2 Pelvic and perineal pain (principal)
CPT/HCPCS: 76830

== ENCOUNTER 2023-11-08 22:00 | Emergency (ER) | payer OTHER ==
[2023-11-09] MEDS: KETOROLAC 15 MG/ML 1 ML VIAL IVP STA (00:46)
[2023-11-09] MEDS: SODIUM CHLORIDE 0.9% 1,000 ML IV STA (00:46)
[2023-11-09] MEDS: METOCLOPRAMIDE 5 MG/ML 2 ML VIAL IVP STA (00:47)
[2023-11-09] MEDS: diphenhydrAMINE 50 MG/ML 1 ML VIAL IVP STA (00:48)
--- NOTE | 2023-11-09 01:45 | ED ---
Headache HPI - General Chief Complaint: Headache Stated Complaint: headache Time Seen by Provider: 11/09/23 00:05 Mode of arrival: ambulatory Limitations: no limitations - History of Present Illness Initial Comments: 23-year-old female presenting with chief complaint of headache. Headache has been on and off for about 2 days. Located on the left side of the head. No nausea or vomiting. No dizziness. No vision or hearing changes. No URI-like symptoms. No fevers. No injury or trauma. Patient said that earlier today she was experiencing some chest pain. This happened after she drank 4 red bowls. The patient does not normally drink caffeine. She states that since then her chest pain has completely resolved. She has no shortness of breath or palpitations. No numbness tingling or weakness. - Related Data Home Medications Medication Instructions Recorded Confirmed Acetaminophen-Codeine 300-30mg 1 tab PO Q6H PRN 02/06/21 02/06/21 [Tylenol w/codeine #3] polyethylene glycoL 3350 [Miralax] 17 gm PO DAILY PRN 02/06/21 02/06/21 Previous Rx's Medication Instructions Recorded Sucralfate [Carafate] 1 gm PO ACHS #40 tablet 02/06/21 Phenazopyridine [Pyridium] 200 mg PO TID #6 tablet 09/10/22 Sulfamethox-Tmp 800-160Mg [Bactrim 1 tab PO Q12HR 5 Days #10 tab 09/10/22 DS 800-160 mg] Artificial Tears-Hypromellose 1 drops LEFT EYE TID #10 ml 02/02/23 [Artificial Tear Drops] Nitrofurantoin Monohyd/M-Cryst 100 mg PO Q12HR #14 cap 02/22/23 [Macrobid] Phenazopyridine HCl 200 mg PO TID PRN #9 tablet 02/22/23 Sulfamethox-Tmp 200-40Mg/5Ml 20 ml PO Q12HR 7 Days #300 ml 02/27/23 [Bactrim Suspension] cephALEXin [Keflex Oral Susp] 10 ml PO BID 7 Days #140 ml 04/29/23 Allergies Allergy/AdvReac Type Severity Reaction Status Date / Time No Known Allergies Allergy Verified 11/08/23 22:24 Review of Systems ROS Statement: Those systems with pertinent positive or pertinent negative responses have been documented in the HPI. ROS Other: All systems not noted in ROS Statement are negative. Past Medical History Past Medical History: No Reported History Additional Past Medical History / Comment(s): seasonal allergies History of Any Multi-Drug Resistant Organisms: None Reported Past Surgical History: No Surgical Hx Reported Past Psychological History: No Psychological Hx Reported Smoking Status: Vaper Past Alcohol Use History: Occasional Past Drug Use History: Marijuana General Exam Limitations: no limitations General appearance: alert, in no apparent distress Head exam: Present: atraumatic, normocephalic Eye exam: Present: normal appearance, EOMI Neck exam: Present: normal inspection. Absent: meningismus Respiratory exam: Absent: respiratory distress Cardiovascular Exam: Present: regular rate Neurological exam: Present: alert, oriented X3 Psychiatric exam: Present: normal affect, normal mood Skin exam: Present: normal color Course Vital Signs 11/08/23 11/09/23 22:22 02:03 Temperature 98.6 F 98.5 F Pulse Rate 73 60 Respiratory 18 16 Rate Blood Pressure 117/72 131/82 O2 Sat by Pulse 100 99 Oximetry Medical Decision Making - Medical Decision Making Was pt. sent in by a medical professional or institution (, PA, CLEANING VALIDATION CONSULTANT, urgent care, hospital, or [facility]...) When possible be specific @ -No Did you speak to anyone other than the patient for history (EMS, parent, family, police, friend...)? What history was obtained from this source @ -No Did you review nursing and triage notes (agree or disagree)? Why? @ -I reviewed and agree with nursing and triage notes Were old charts reviewed (outside hosp., previous admission, EMS record, old EKG, old radiological studies, urgent care reports/EKG's, [facility] records)? Report findings @ -No old charts were reviewed Differential Diagnosis (chest pain, altered mental status, abdominal pain women, abdominal pain men, vaginal bleeding, weakness, fever, dyspnea, syncope, headache, dizziness, GI bleed, back pain, seizure, CVA, palpatations, mental health, musculoskeletal)? @ -MDM Differential Headache: Migraine, tension, cluster, carbon monoxide, central venous thrombosis, pension karma temporal arteritis, acute closure glaucoma, intercranial hemorrhage, mastoiditis, sinusitis, head injury this is not meant to be an all-inclusive list. EKG interpreted by me (3pts min.). @ -EKG shows sinus rhythm with sinus arrhythmia. Ventricular rate 65. MT interval 196. QRS 87. QT 382. QTc 393. No ST deviation. X-rays interpreted by me (1pt min.). @ -None done CT interpreted by me (1pt min.). @ -None done U/S interpreted by me (1pt. min.). @ -None done What testing was considered but not performed or refused? (CT, X-rays, U/S, labs)? Why? @ -None What meds were considered but not given or refused? Why? @ -None Did you discuss the management of the patient with other professionals (professionals i.e. Dr., PA, CLEANING VALIDATION CONSULTANT, lab, RT, psych nurse, dialysis social worker, scanning manager, teacher, chief credit officer, dependency case manager)? Give summary @ -No Was smoking cessation discussed for >3mins.? @ -No Was critical care preformed (if so, how long)? @ -No Were there social determinants of health that impacted care today? How? (Homelessness, low income, unemployed, alcoholism, drug addiction, transportation, low edu. Level, literacy, decrease access to med. care, correction, rehab)? @ -No Was there de-escalation of care discussed even if they declined (Discuss DNR or withdrawal of care, Hospice)? DNR status @ -No What co-morbidities impacted this encounter? (DM, HTN, Smoking, COPD, CAD, Cancer, CVA, ARF, Chemo, Hep., AIDS, mental health diagnosis, sleep apnea, morbid obesity)? @ -None Was patient admitted / discharged? Hospital course, mention meds given and route, prescriptions, significant lab abnormalities, going to OR and other pertinent info. @ -23-year-old female presenting with chief complaint of headache. Patient also states that earlier today she had some chest pain after drinking 4 red bowls which has completely resolved. She is not concerned about her chest pain anymore and is only concerned about her headache. She is given a migraine cocktail. On reassessment she reports significant improvement in her symptoms. Discharged home. Follow-up with PCP. Report back to ER with any new or worsening symptoms. Discussed return parameters and answered all questions. Patient conveyed verbal understanding and agreed to the plan. I discussed this case in detail with my attending Dr. Harden Undiagnosed new problem with uncertain prognosis? @ -No Drug Therapy requiring intensive monitoring for toxicity (Heparin, Nitro, Insulin, Cardizem)? @ -No Were any procedures done? @ -No Diagnosis/symptom? @ -Migraine Acute, or Chronic, or Acute on Chronic? @ -Acute Uncomplicated (without systemic symptoms) or Complicated (systemic symptoms)? @ -Uncomplicated Side effects of treatment? @ -No Exacerbation, Progression, or Severe Exacerbation? @ -No Poses a threat to life or bodily function? How? (Chest pain, [place], [place], pneumonia, PE, COPD, DKA, ARF, appy, cholecystitis, CVA, Diverticulitis, Homicidal, Suicidal, threat to staff... and all critical care pts) @ -Unlikely Disposition Clinical Impression: Migraine headache Disposition: HOME SELF-CARE Condition: Good Instructions (If sedation given, give patient instructions): Acute Headache (ED) Additional Instructions: Follow-up with PCP. Report back to ER with any new or worsening symptoms. Is patient prescribed a controlled substance at d/c from ED?: No Referrals: Bryan Persaud Jr, DO [Primary Care Provider] - 1-2 days Time of Disposition: 01:44
[2023-11-09 02:33] VITALS: BP 131/82; PULSE 60; RESP 16; TEMP 98.5
== END 2023-11-09 02:05 | disposition home or self-care (01) ==
LOC: EC 22:00
DX: G43.909 Migraine, unspecified, not intractable, without status migrainosus (principal); F17.290 Nicotine dependence, other tobacco product, uncomplicated; F12.90 Cannabis use, unspecified, uncomplicated
CPT/HCPCS: 99284; 96374; 96375 ×2; 96361; 93005; J1200; J2765; J1885

== ENCOUNTER 2023-12-21 03:51 | Emergency (ER) | payer OTHER ==
[2023-12-21 03:59] VITALS: RESP 18
--- NOTE | 2023-12-21 04:35 | ED ---
ENT HPI - General Chief complaint: ENT Stated complaint: Throat pain Time Seen by Provider: 12/21/23 04:00 Source: patient Mode of arrival: ambulatory Limitations: no limitations - History of Present Illness Initial comments: 23-year-old female presents emergency department for sore throat states that the symptoms have been present for the past couple of hours. She could not sleep last night due to the pain. She did take a dose of Tylenol without any improvement in her symptoms. Denies any sick contacts with similar symptoms. No fevers. Denies cough or shortness of breath. No ear pain. Does admit to difficulty swallowing. No other alleviating, precipitating or modifying factors - Related Data Home Medications Medication Instructions Recorded Confirmed Acetaminophen-Codeine 300-30mg 1 tab PO Q6H PRN 02/06/21 02/06/21 [Tylenol w/codeine #3] polyethylene glycoL 3350 [Miralax] 17 gm PO DAILY PRN 02/06/21 02/06/21 Previous Rx's Medication Instructions Recorded Sucralfate [Carafate] 1 gm PO ACHS #40 tablet 02/06/21 Phenazopyridine [Pyridium] 200 mg PO TID #6 tablet 09/10/22 Sulfamethox-Tmp 800-160Mg [Bactrim 1 tab PO Q12HR 5 Days #10 tab 09/10/22 DS 800-160 mg] Artificial Tears-Hypromellose 1 drops LEFT EYE TID #10 ml 02/02/23 [Artificial Tear Drops] Nitrofurantoin Monohyd/M-Cryst 100 mg PO Q12HR #14 cap 02/22/23 [Macrobid] Phenazopyridine HCl 200 mg PO TID PRN #9 tablet 02/22/23 Sulfamethox-Tmp 200-40Mg/5Ml 20 ml PO Q12HR 7 Days #300 ml 02/27/23 [Bactrim Suspension] cephALEXin [Keflex Oral Susp] 10 ml PO BID 7 Days #140 ml 04/29/23 Amoxicillin 500 mg PO Q12H 10 Days #200 ml 12/21/23 Allergies Allergy/AdvReac Type Severity Reaction Status Date / Time No Known Allergies Allergy Verified 12/21/23 03:59 Review of Systems ROS Statement: Those systems with pertinent positive or pertinent negative responses have been documented in the HPI. ROS Other: All systems not noted in ROS Statement are negative. Past Medical History Past Medical History: No Reported History Additional Past Medical History / Comment(s): seasonal allergies History of Any Multi-Drug Resistant Organisms: None Reported Past Surgical History: No Surgical Hx Reported Past Psychological History: No Psychological Hx Reported Smoking Status: Vaper Past Alcohol Use History: Occasional Past Drug Use History: Marijuana General Exam Limitations: no limitations General appearance: alert, in no apparent distress Head exam: Present: atraumatic, normocephalic, normal inspection Eye exam: Present: normal appearance, PERRL, EOMI. Absent: scleral icterus, conjunctival injection, periorbital swelling ENT exam: Present: mucous membranes moist (no drooling, trismus, hoarseness or stridor), other (Tonsils are enlarged, erythematous. There is white plaquing) Neck exam: Present: normal inspection. Absent: tenderness, meningismus, lymphadenopathy Course Vital Signs 12/21/23 12/21/23 03:58 05:22 Temperature 98.6 F 98.3 F Pulse Rate 86 78 Respiratory 18 18 Rate Blood Pressure 135/86 132/83 O2 Sat by Pulse 100 100 Oximetry Medical Decision Making - Medical Decision Making Was pt. sent in by a medical professional or institution (, PA, HAIR CUTTER, urgent care, hospital, or fpc...) When possible be specific @ -[No] Did you speak to anyone other than the patient for history (EMS, parent, family, police, friend...)? What history was obtained from this source @ -[No] Did you review nursing and triage notes (agree or disagree)? Why? @ -[I reviewed and agree with nursing and triage notes] Were old charts reviewed (outside hosp., previous admission, EMS record, old EKG, old radiological studies, urgent care reports/EKG's, [facility] records)? Report findings @ -[No old charts were reviewed] Differential Diagnosis (chest pain, altered mental status, abdominal pain women, abdominal pain men, vaginal bleeding, weakness, fever, dyspnea, syncope, headache, dizziness, GI bleed, back pain, seizure, CVA, palpatations, mental health, musculoskeletal)? @ -Pharyngitis, COVID, influenza EKG interpreted by me (3pts min.). @ -Not done X-rays interpreted by me (1pt min.). @ -[None done] CT interpreted by me (1pt min.). @ -[None done] U/S interpreted by me (1pt. min.). @ -[None done] What testing was considered but not performed or refused? (CT, X-rays, U/S, labs)? Why? @ -[None] What meds were considered but not given or refused? Why? @ -[None] Did you discuss the management of the patient with other professionals (professionals i.e. , PA, HAIR CUTTER, lab, RT, psych nurse, renal social worker, ip litigation paralegal, teacher, field crop technical officer, case consultant)? Give summary @ -[No] Was smoking cessation discussed for >3mins.? @ -[No] Was critical care preformed (if so, how long)? @ -[No] Were there social determinants of health that impacted care today? How? (Homelessness, low income, unemployed, alcoholism, drug addiction, transportation, low edu. Level, literacy, decrease access to med. care, senior living, rehab)? @ -[No] Was there de-escalation of care discussed even if they declined (Discuss DNR or withdrawal of care, Hospice)? DNR status @ -[No] What co-morbidities impacted this encounter? (DM, HTN, Smoking, COPD, CAD, Cancer, CVA, ARF, Chemo, Hep., AIDS, mental health diagnosis, sleep apnea, morbid obesity)? @ -[None] Was patient admitted / discharged? Hospital course, mention meds given and route, prescriptions, significant lab abnormalities, going to OR and other pertinent info. @ -[hospital course] Undiagnosed new problem with uncertain prognosis? @ -[No] Drug Therapy requiring intensive monitoring for toxicity (Heparin, Nitro, Insulin, Cardizem)? @ -[No] Were any procedures done? @ -[No] Diagnosis/symptom? @ -[default] Acute, or Chronic, or Acute on Chronic? @ -[default] Uncomplicated (without systemic symptoms) or Complicated (systemic symptoms)? @ -[default] Side effects of treatment? @ -[No] Exacerbation, Progression, or Severe Exacerbation? @ -[No] Poses a threat to life or bodily function? How? (Chest pain, [place], [place], pneumonia, PE, COPD, DKA, ARF, appy, cholecystitis, CVA, Diverticulitis, Homicidal, Suicidal, threat to staff... and all critical care pts) @ -[No] - Lab Data Lab Results 12/21/23 12/21/23 Range/Units 04:17 04:17 Influenza Type A (PCR) Not Detected (Not Detectd) Influenza Type B (PCR) Not Detected (Not Detectd) RSV (PCR) Not Detected (Not Detectd) SARS-CoV-2 (PCR) Not Detected (Not Detectd) Group A Strep (PCR) NOT DETECTED (Not Detectd) Disposition Clinical Impression: Pharyngitis Disposition: HOME SELF-CARE Condition: Stable Instructions (If sedation given, give patient instructions): Pharyngitis (ED) Additional Instructions: Alternate taking Motrin with Tylenol every 4 hours. Take the antibiotics as instructed. Follow-up with your doctor and return for any new or worsening symptoms Prescriptions: Amoxicillin 500 mg PO Q12H 10 Days #200 ml Is patient prescribed a controlled substance at d/c from ED?: No Referrals: Bryan Persaud Jr, [Primary Care Provider] - 1-2 days Time of Disposition: 04:35
[2023-12-21] MEDS: AMOXICILLIN 250 MG/5 ML 80 ML BOTTLE PO STA (05:13)
[2023-12-21] MEDS: IBUPROFEN ORAL SUSP 100 MG/5 ML CUP PO STA (05:14)
[2023-12-21 05:23] VITALS: BP 132/83; PULSE 78; TEMP 98.3
== END 2023-12-21 05:23 | disposition home or self-care (01) ==
LOC: EC 03:51
DX: J02.9 Acute pharyngitis, unspecified (principal); F17.290 Nicotine dependence, other tobacco product, uncomplicated
CPT/HCPCS: 87636; 87651; 99283

== ENCOUNTER → 2023-12-26 | Outpatient (CLI) | payer OTHER ==
[2023-12-26 20:08] LABS: Gliadin AB IgA, Deaminated Negative (Negative); Gliadin AB IgA, Unit <0.5 U/mL; Gliadin AB IgG, Deaminated Negative (Negative); Gliadin AB IgG, Unit <0.4 U/mL
== END | disposition home or self-care (01) ==
LOC: LABWHC1 09:03
PROVIDERS: ATTEND Nurse Practitioner Family
DX: K59.09 Other constipation (principal)
CPT/HCPCS: 36415; 83516; 85652; 86140

== ENCOUNTER 2024-02-20 15:06 | Emergency (ER) | payer OTHER ==
--- NOTE | 2024-02-20 16:07 | ED ---
Skin/Abscess/FB HPI - General Chief complaint: Skin/Abscess/Foreign Body Stated complaint: Abscess(Head) Time Seen by Provider: 02/20/24 15:21 Source: patient, RN notes reviewed Mode of arrival: ambulatory Limitations: no limitations - History of Present Illness Initial comments: 23-year-old female with no significant past medical history presents emergency department chief complaint of a right posterior scalp "bump ". Patient states that this area of concern has been present essentially her whole life and has been evaluated for this and was told that her body's anatomy has the lump. Patient states that she is concerned as there has been mild pain over the past 2 days in the back of her scalp which she is concerned this may be related to the bone. Patient denies fevers, chills, nausea, vomiting, weakness, shortness of breath, difficulty breathing. She denies drainage from the site blurry, double vision, focal neurological deficits. No other acute complaints at this time. - Related Data Home Medications Medication Instructions Recorded Confirmed Acetaminophen-Codeine 300-30mg 1 tab PO Q6H PRN 02/06/21 02/06/21 [Tylenol w/codeine #3] polyethylene glycoL 3350 [Miralax] 17 gm PO DAILY PRN 02/06/21 02/06/21 Previous Rx's Medication Instructions Recorded Sucralfate [Carafate] 1 gm PO ACHS #40 tablet 02/06/21 Phenazopyridine [Pyridium] 200 mg PO TID #6 tablet 09/10/22 Sulfamethox-Tmp 800-160Mg [Bactrim 1 tab PO Q12HR 5 Days #10 tab 09/10/22 DS 800-160 mg] Artificial Tears-Hypromellose 1 drops LEFT EYE TID #10 ml 02/02/23 [Artificial Tear Drops] Nitrofurantoin Monohyd/M-Cryst 100 mg PO Q12HR #14 cap 02/22/23 [Macrobid] Phenazopyridine HCl 200 mg PO TID PRN #9 tablet 02/22/23 Sulfamethox-Tmp 200-40Mg/5Ml 20 ml PO Q12HR 7 Days #300 ml 02/27/23 [Bactrim Suspension] cephALEXin [Keflex Oral Susp] 10 ml PO BID 7 Days #140 ml 04/29/23 Amoxicillin 500 mg PO Q12H 10 Days #200 ml 12/21/23 Allergies Allergy/AdvReac Type Severity Reaction Status Date / Time No Known Allergies Allergy Verified 02/20/24 15:11 Review of Systems ROS Statement: Those systems with pertinent positive or pertinent negative responses have been documented in the HPI. ROS Other: All systems not noted in ROS Statement are negative. Past Medical History Past Medical History: No Reported History Additional Past Medical History / Comment(s): seasonal allergies History of Any Multi-Drug Resistant Organisms: None Reported Past Surgical History: No Surgical Hx Reported Past Psychological History: No Psychological Hx Reported Smoking Status: Vaper Past Alcohol Use History: Occasional Past Drug Use History: Marijuana General Exam Limitations: no limitations General appearance: alert, in no apparent distress Head exam: Present: other (posterior right occipital lipoma measuring aprox. 1 cm by 0.5 cm) Eye exam: Present: normal appearance, PERRL, EOMI. Absent: scleral icterus, conjunctival injection, periorbital swelling ENT exam: Present: normal exam, mucous membranes moist Neck exam: Present: normal inspection. Absent: tenderness, meningismus, lymphadenopathy Respiratory exam: Present: normal lung sounds bilaterally. Absent: respiratory distress, wheezes, rales, rhonchi, stridor Cardiovascular Exam: Present: regular rate, normal rhythm, normal heart sounds. Absent: systolic murmur, diastolic murmur, rubs, gallop, clicks GI/Abdominal exam: Present: soft, normal bowel sounds. Absent: distended, tenderness, guarding, rebound, rigid Back exam: Present: normal inspection Skin exam: Present: warm, dry, intact, normal color. Absent: rash Course Vital Signs 02/20/24 02/20/24 02/20/24 15:09 16:08 17:15 Temperature 98.2 F 98.1 F Pulse Rate 103 H 80 63 Respiratory 14 18 Rate Blood Pressure 122/66 103/62 O2 Sat by Pulse 94 L 99 100 Oximetry Medical Decision Making - Medical Decision Making Was pt. sent in by a medical professional or institution (, [facility], [employer], urgent care, hospital, or alf...) When possible be specific @ -No Did you speak to anyone other than the patient for history (EMS, parent, family, police, friend...)? What history was obtained from this source @ -No Did you review nursing and triage notes (agree or disagree)? Why? @ -I reviewed and agree with nursing and triage notes Were old charts reviewed (outside hosp., previous admission, EMS record, old EKG, old radiological studies, urgent care reports/EKG's, alf records)? Report findings @ -No old charts were reviewed Differential Diagnosis (chest pain, altered mental status, abdominal pain women, abdominal pain men, vaginal bleeding, weakness, fever, dyspnea, syncope, headache, dizziness, GI bleed, back pain, seizure, CVA, palpatations, mental health, musculoskeletal)? @ -Abscess, cellulitis, lipoma, migraine headache, this list not all inclusive EKG interpreted by me (3pts min.). @ -None X-rays interpreted by me (1pt min.). @ -None done CT interpreted by me (1pt min.). @ -None done U/S interpreted by me (1pt. min.). @ -None done What testing was considered but not performed or refused? (CT, X-rays, U/S, labs)? Why? @ -Imaging was considered but deferred at this time. Patient is acute complaint is concern for increased bump on the posterior head. [id number] ultrasound was done at bedside which reveals no evidence of drainable mass however there is a mildly enlarged area which is consistent with a lipoma. What meds were considered but not given or refused? Why? @ -None Did you discuss the management of the patient with other professionals (professionals i.e. , PA, [employer], lab, RT, psych nurse, health care social worker, runner man, teacher, campus security officer, protective services case worker)? Give summary @ -No Was smoking cessation discussed for >3mins.? @ -No Was critical care preformed (if so, how long)? @ -No Were there social determinants of health that impacted care today? How? (Homelessness, low income, unemployed, alcoholism, drug addiction, transportation, low edu. Level, literacy, decrease access to med. care, long-term, rehab)? @ -No Was there de-escalation of care discussed even if they declined (Discuss DNR or withdrawal of care, Hospice)? DNR status @ -No What co-morbidities impacted this encounter? (DM, HTN, Smoking, COPD, CAD, Cancer, CVA, ARF, Chemo, Hep., AIDS, mental health diagnosis, sleep apnea, morbid obesity)? @ -None Was patient admitted / discharged? Hospital course, mention meds given and route, prescriptions, significant lab abnormalities, going to OR and other pertinent info. @ -Discharge. 23-year-old female with a "bump "to the posterior right scalp. On examination there is no area of fluctuance, erythema, purulence or drainage. Vitals are stable. [id number] ultrasound was done at bedside which did not reveal a fluid collection or abscess, there is a mild palpable area that is approximately 1 cm x 0.5 cm that is consistent with lipoma. Recommend the patient continue Tylenol Motrin at home for symptomatic relief of migraine headaches and to establish care with a primary care provider for further evaluation. There is minimal clinical concern for further intracranial pathology at this time as patient has had this area over the posterior scalp for all time she remembers been evaluated for it in the past. All questions answered at bedside and strict return parameters discussed with the patient she is verbalized understanding. discussed with Dr. Peck @ -No Drug Therapy requiring intensive monitoring for toxicity (Heparin, Nitro, Insulin, Cardizem)? @ -No Were any procedures done? @ -No Diagnosis/symptom? @ -lipoma Acute, or Chronic, or Acute on Chronic? @ -Acute Uncomplicated (without systemic symptoms) or Complicated (systemic symptoms)? @ -Uncomplicated Side effects of treatment? @ -No Exacerbation, Progression, or Severe Exacerbation? @ -No Poses a threat to life or bodily function? How? (Chest pain, [place], [place], pneumonia, PE, COPD, DKA, ARF, appy, cholecystitis, CVA, Diverticulitis, Homicidal, Suicidal, threat to staff... and all critical care pts) @ -No Disposition Clinical Impression: Lipoma Disposition: HOME SELF-CARE Condition: Good Instructions (If sedation given, give patient instructions): Soft Tissue Mass (ED) Additional Instructions: Return to the emergency department for any new or worsening symptoms. Recommend that you establish care with primary care provider and follow-up for further evaluation. Is patient prescribed a controlled substance at d/c from ED?: No Referrals: Bryan Persaud Jr, DO [Primary Care Provider] - 1-2 days Time of Disposition: 16:40
[2024-02-20 17:17] VITALS: BP 103/62; PULSE 63; RESP 18; TEMP 98.1
== END 2024-02-20 17:00 | disposition home or self-care (01) ==
LOC: EC 15:06
DX: L02.811 Cutaneous abscess of head [any part, except face]
CPT/HCPCS: 99282